=== PATIENT | female | born 1970 | race Caucasian/White ===

== ENCOUNTER 2018-03-15 20:21 | Inpatient (IN) | payer OTHER ==
[~2018-03-15] VITALS: Ht 160 cm; Wt 74.8 kg
--- NOTE | 2018-03-15 20:44 | ED GI/GU/ABDOMINAL COMPLAINT ---
History of Present Illness General Chief Complaint: Abdominal Pain/Flank Pain Stated Complaint: "ABD PAIN, CHILLS, SWEATING,GAS, NAUSEA" Source: patient, family Exam Limitations: no limitations Vital Signs & Intake/Output Vital Signs & Intake/Output Vital Signs Date Time Temp Pulse Resp B/P B/P Pulse O2 O2 Flow FiO2 Mean Ox Delivery Rate 03/18 0613 98.2 48 20 92/62 96 03/17 2205 98.2 53 18 98/52 98 Room Air 03/17 1500 97.6 58 18 100/72 97 Room Air ED Intake and Output 03/18 0000 03/17 1200 Intake Total 1730 120 Output Total 400 Balance 1330 120 Intake, IV 1000 Intake, Oral 730 120 Number 0 Bowel Movements Output, Urine 400 Allergies Coded Allergies: No Known Allergies (03/15/18) Reconcile Medications Cholecalciferol (Vitamin D3) (Vitamin D3) (Unknown Strength) CAPSULE (Unknown Dose) PO Q3D SUPPLEMENT (Reported) Ferrous Sulfate 324 MG (65 MG IRON) TABLET.DR 1 TAB PO Q3D SUPPLEMENT ( Reported) Triage Nurses Notes Reviewed? yes ? N Is pt currently ? No HPI: 48F no PMH with 1 day of acute onset of severe RUQ pain, squeezing in nature, radiates to epigastrium, with nausea and chills. Denies fever, vomiting, chest pain, SOB, diarrhea, dysuria. Had a similar episode 5 days ago that lasted about 24 hours. Strong family history of gall bladder problems. No personal or family cardiac history, non-smoker, active. No recent fatty meals. No trauma. Past History Travel History Traveled to [place] past 21 day No Medical History Any Pertinent Medical History? see below for history Surgical History Surgical History: non-contributory Psychosocial History What is your primary language Taiwanese Family History Hx Contributory? No Review of Systems Review of Systems Constitutional: Reports: no symptoms. EENTM: Reports: no symptoms. Respiratory: Reports: no symptoms. Cardiovascular: Reports: no symptoms. GI: Reports: no symptoms. Genitourinary: Reports: no symptoms. Musculoskeletal: Reports: no symptoms. Skin: Reports: no symptoms. Neurological/Psychological: Reports: no symptoms. Hematologic/Endocrine: Reports: no symptoms. Immunologic/Allergic: Reports: no symptoms. All Other Systems: Reviewed and Negative Physical Exam Physical Exam General Appearance: well developed/nourished, moderate distress Head: atraumatic, normal appearance Eyes: Bilateral: normal appearance, normal inspection. Ears, Nose, Throat, Mouth: hearing grossly normal, moist mucous membrane Neck: normal inspection, supple, full range of motion Respiratory: normal breath sounds, chest non-tender, no respiratory distress Cardiovascular: regular rate/rhythm Gastrointestinal: soft, RUQ tenderness, +Arriaza's Back: normal inspection, normal range of motion Extremities: normal range of motion Neurologic/Psych: awake, alert, oriented x 3, normal mood/affect Skin: intact, normal color, warm/dry Core Measures ACS in differential dx? No Sepsis Present: No Sepsis Focused Exam Completed? No Progress Differential Diagnosis: AAA, AMI, appendicitis, biliary colic, bowel obstruction , colon cancer, cholecystitis, diverticulitis, ectopic , endometritis, esophageal varices, gastritis, hepatitis, hernia, hemorrhoids, ischemic bowel, inflamm bowel dis, intrauterine , kidney stone, Pricilla-Shannon tear, ovarian cyst, ovarian torsion, pancreatitis, PID/cervicitis, peptic ulcer, PUD/ GERD, perforated viscous, SBO, threatened AB, UTI/pyelo Plan of Care: Orders Procedure Date/time Status EKG 03/18 0931 Active URINE 03/18 0927 Active Change service to 03/18 0747 Active HUMAN BETA HCG SCREEN 03/18 0740 Complete PROTHROMBIN TIME 03/18 0600 Complete HEPATIC FUNCTION PANEL 03/18 06 Complete CBC WITHOUT DIFFERENTIAL 03/18 06 Complete BASIC ELECTROLYTES PLUS BUN&CR 03/18 06 Complete Lab Add-on Test 03/18 UNK Active Current Medications Sig/Rachana Start time Last Medication Dose Stop Time Status Admin Dextrose/Sodium 1,000 ML Q13H 03/17 1345 AC 03/18 Chloride 0547 (D5W-1/2 Normal Saline 1000ML) Morphine Sulfate 1 MG Q4-PRN PRN 03/17 1345 AC 03/18 (MORPHINE SULFATE) 0200 Omeprazole 40 MG DAILY AC 03/17 0945 AC 03/18 (Prilosec) 0547 Metronidazole 500 MG IQ8 03/17 0000 AC 03/18 (Flagyl) 0823 N/A 1 UNIT (No Carrier) Ceftriaxone Sodium 1,000 MG DAILY@1930 03/16 193 AC 03/17 (Rocephin) 2023 Acetaminophen 1,000 MG Q8P PRN 03/16 1915 AC 03/18 (Tylenol) 0619 Ondansetron HCl 4 MG Q6P PRN 03/16 0045 AC 03/17 (Zofran) 2023 Laboratory Tests 03/18/18 0740: Anion Gap 7, Estimated GFR > 60, BUN/Creatinine Ratio 6.7 L, Total Bilirubin 2.9 H, Direct Bilirubin 1.6 H, AST 319 H, ALT 733 H, Alkaline Phosphatase 183 H, Total Protein 6.3, Albumin 3.4 L, Total Beta HCG NEGATIVE, PT 13.1 H, INR 1.20 H, CBC w Diff NO MAN DIFF REQ, RBC 3.33 L, MCV 86.8, MCH 30.5, MCHC 35.1, RDW 12.6, MPV 8.6, Gran % 54.1, Lymphocytes % 32.1, Monocytes % 10.1 H, Eosinophils % 3.1, Basophils % 0.6, Absolute Granulocytes 1.7, Absolute Lymphocytes 1.0 L, Absolute Monocytes 0.3, Absolute Eosinophils 0.1, Absolute Basophils 0 Initial ED EKG: none Departure Departure Disposition: STILL A PATIENT Condition: Stable Clinical Impression Primary Impression: Choledocholithiasis Referrals: Ivonne Smith DO (PCP/Family) Departure Forms: Customer Survey General Discharge Information Admission Note Spoke With: Josh Sadler MD Documentation of Exam: Documentation of any treatments & extenuating circumstances including Concerns Regarding Discharge (functional status, medication knowledge or non-compliance, living conditions, etc.) that warrant an admission rather than observation: RUQ PAIN AND ELEVATED LFTS WITH CBD DILITATION CONSISTENT WITH CHOLEDOCHOLITHIASIS, WILL REQUIRE ADMISSION FOR GI CONSULT, MRCP, LIKELY ERCP, WILL REQUIRE SURGERY CONSULT FOR CHOLECYSTECTOMY, MONITORING FOR PROGRESSION TO CHOLECYSTITIS.
[2018-03-15] MEDS ORDERED: FERROUS SULFAT324 MG PO (20:46)
[2018-03-15] MEDS ORDERED: VITAMIN D31000 UNI1 PO (20:47)
[2018-03-15 21:30] LABS: ABSOLUTE BASOPHIL COUNT 0 /CUMM (0.0-0.2); ABSOLUTE EOSINOPHIL COUNT 0 /CUMM (0.0-0.7); ABSOLUTE LYMPH COUNT 1.2 /CUMM (1.2-3.4); ABSOLUTE MONOCYTE COUNT 0.5 /CUMM (0.10-0.60); BASOPHIL % 0.3 % (0.0-2.0); EOSINOPHIL % 0.4 % (0-5); HEMATOCRIT 35.1 % (37-47); MEAN CORPUSCULAR HGB 29.4 PG (27.0-31.0); MEAN CORPUSCULAR HGB CONC 33.8 G/DL (33.0-37.0); MEAN CORPUSCULAR VOLUME 86.9 FL (81.0-99.0); PLATELET COUNT 210 /CUMM (130-400); RBC DISTRIBUTION WIDTH 12.7 % (11.5-14.5); RED BLOOD CELL CT 4.04 /CUMM (4.20-5.40); WHITE BLOOD CELL COUNT 6.7 /CUMM (4.8-10.8)
--- NOTE | 2018-03-15 21:32 | ULTRASOUND REPORT ---
EXAMINATION: US ABDOMEN LIMITED CLINICAL INFORMATION: Quadrant pain.. COMPARISON: None TECHNIQUE: Real-time imaging of the right upper quadrant abdominal viscera. Color Doppler exam used. FINDINGS: PANCREAS: There is a small focal echogenic area at the head of the pancreas which could be a stone in the distal duct or a pancreatic calcification. There is no pancreatic duct dilatation. There is no inflammation around the pancreas. LIVER: Normal. The liver demonstrates normal size, contour and echogenicity. No focal lesion or intrahepatic biliary duct dilatation. GALLBLADDER: Multiple small gallstones within the gallbladder. There is also echogenic bile. There is no gallbladder wall thickening. Gallbladder wall measures 0.2 cm. There is no pericholecystic fluid. Patient does have tenderness with transducer over the gallbladder area, positive ultrasound Arriaza's sign. COMMON BILE DUCT: Common bile duct is dilated to diameter 0.9 cm. There is echogenic focus at the head of the pancreas, concerning for a small stone in the distal common bile duct measuring about 4 mm. RIGHT KIDNEY: Normal. No hydronephrosis. No renal calculi or focal parenchymal lesions. The kidney measures 10.6 cm in maximum dimension. FREE FLUID: None. IMPRESSION: 1. Cholelithiasis. No gallbladder wall thickening or pericholecystic fluid. There is positive ultrasound Arriaza's sign. 2. Dilatation of the CBD to 9 mm. Possible stone in the distal CBD that of the pancreas.
--- NOTE | 2018-03-15 23:51 | History & Physical ---
Alma DeliaJazlyn jensen 03/15/18 2349: General Information and HPI MD Statement: I have seen and personally examined JERRY BREAUX and documented this H&P. The patient is a 48 year old F who presented with a patient stated chief complaint of [abdominal pain]. Source of Information: patient Exam Limitations: no limitations History of Present Illness: 48-year-old lady with no significant past medical history except anemia came to the hospital with chief complaint of nausea and abdominal pain for 1 day. She reported that couple of hours before coming to the hospital she had an episode of severe abdominal pain around her umbilical area mildly radiating to the back and associated with nausea . Per patient reported that she ate a bigger today and also had an alcoholic mixed drinks yesterday night. She reported that she had a somewhat similar episode one week ago which resolved spontaneously. She saw her PCP 3 days ago and LFTs at that point were normal and she is supposed to get the ultrasound of the abdomen later. Patient does have a family history of gallstones, denies any chest pain, headache, dizziness, shortness of breath, recent travel. Patient does report she had a muscle strain in the back sometimes the pain radiates to the back as well. No diarrhea, constipation, change in urinary habits. Patient also reports that she is having her menstrual period concurrently. Vital signs ED were stable, it should be noted that patient's blood pressure baseline is around 100-110. Labs are notable for hemoglobin 11.9, total bilirubin 1.4, direct bili 0.8, AST 725, ALT 612, ALP 175, troponin WNL, lipase 303 Abdominal ultrasound showed IMPRESSION: 1. Cholelithiasis. No gallbladder wall thickening or pericholecystic fluid. There is positive ultrasound Arriaza's sign. 2. Dilatation of the CBD to 9 mm. Possible stone in the distal CBD that of the pancreas. EKG showed bradycardia, heart rate 55, QTc 458, no acute ST-T elevation Allergies/Medications Allergies: Coded Allergies: No Known Allergies (03/15/18) Home Med list Cholecalciferol (Vitamin D3) (Vitamin D3) (Unknown Strength) CAPSULE (Unknown Dose) PO Q3D SUPPLEMENT (Reported) Ferrous Sulfate 324 MG (65 MG IRON) TABLET. 1 TAB PO Q3D SUPPLEMENT ( Reported) Past History Travel History Traveled to [place] past 21 day No Medical History Neurological: NONE EENT: NONE Cardiovascular: NONE Respiratory: NONE Gastrointestinal: NONE Surgical History Surgical History: non-contributory Past Family/Social History Family History Relations & Conditions if any FATHER (CABG). SISTER (cholecystecmtomy). Psychosocial History Smoking Status: Never Smoked ETOH Use: occasional use Review of Systems Review of Systems Constitutional: Reports: no symptoms. Exam & Diagnostic Data Last 24 Hrs of Vital Signs/I&O Vital Signs Date Time Temp Pulse Resp B/P B/P Pulse O2 O2 Flow FiO2 Mean Ox Delivery Rate 03/15 2230 62 14 100/59 99 Room Air 03/15 2210 Room Air 03/15 2046 97.6 14 106/60 100 Room Air Physical Exam General Appearance Alert, Oriented X3, Cooperative Cardiovascular Regular Rate, Normal S1, Normal S2 Lungs Clear to Auscultation, Normal Air Movement Abdomen Normal Bowel Sounds, Soft, MILD RUQ TENDERNESS, NO REBOUND Extremities No Clubbing, No Cyanosis, No Edema Assessment/Plan Assessment: 48-year-old lady with no significant past medical history except anemia came to the hospital with chief complaint of nausea and abdominal pain for 1 day. She reported that couple of hours before coming to the hospital she had an episode of severe abdominal pain around her umbilical area mildly radiating to the back and associated with nausea . Patient does have a family history of gallstones, denies any chest pain, headache, dizziness, shortness of breath, recent travel. Vital signs ED were stable, it should be noted that patient's blood pressure baseline is around 100-110. Labs are notable for hemoglobin 11.9, total bilirubin 1.4, direct bili 0.8, AST 725, ALT 612, ALP 175, troponin WNL, lipase 303 Abdominal ultrasound showed IMPRESSION: 1. Cholelithiasis. No gallbladder wall thickening or pericholecystic fluid. There is positive ultrasound Arriaza's sign. 2. Dilatation of the CBD to 9 mm. Possible stone in the distal CBD that of the pancreas. EKG showed bradycardia, heart rate 55, QTc 458, no acute ST-T elevation Assessment Choledocholithiasis with elevated LFTs History of anemia Plan Admit to general medicine floor NPO for now IV hydration with 500 cc of normal saline 75 cc/h IV morphine as needed for pain management IV Zofran as needed for nausea Trend LFTs in the morning and if it is trending up we will call GI for ERCP Patient prefers Maycol Torres MD for elective gallstone we will call in the morning Watch for fevers, hemodynamic instability and start antibiotics if patient became unstable DVT prophylaxis is mechanical, NPO, full code, IV morphine for pain As Ranked By This Provider Problem List: 1. Choledocholithiasis Core Measures/Misc (08/05) Acute Coronary Syndrome ACS Diagnosis: No Congestive Heart Failure Congestive Heart Failure Diagnosis No Cerebrovascular Accident CVA/TIA Diagnosis: No VTE (View Protocol) VTE Risk Factors Acute Medical Illness No Mechanical VTE Prophylaxis d/t N/A MechProphylax Ordered No VTE Pharm Prophylaxis d/t Other (possible gi intervention) Sepsis (View protocol) Sepsis Present: No Doroteo,Aartee 03/16/18 0053: Attending MD Review Statement Attending Statement Attending MD Statement: examined this patient, discuss w/resident/PA/VICE INVESTIGATOR, agreed w/resident/PA/VICE INVESTIGATOR, discussed with family, reviewed EMR data (avail), reviewed images, amended to note Attending Assessment/Plan: CC: Abdominal pain PMH: None Patient came to ER for severe epigastric, periumbilical pain radiating to right upper quadrant and back started this afternoon at 3 PM, after eating chicken wings, associated with nausea but no vomiting, associated with mild chills but no fever. Pain improves a little bit burping, improved after IV morphine in ER. Patient had similar symptoms approximately a week back, pain lasted for 24 hours and resolved by itself. She followed up with primary care physician on Sunday, labs were obtained at that time and she was suggested to get right upper quadrant ultrasound. Liver function appeared normal at that time and she was awaiting right upper quadrant ultrasound within next 2 weeks. But this episode of pain was getting more worse so she came to ER. Vitals: T max 98.8, pulse 62, RR 14, blood pressure 106/60, saturating 100% on room air. On exam: A O 3, cooperative, no acute distress, neck supple, JVD normal, no lymphadenopathy, mucosa moist, no focal neurological deficit, no dependent edema , no obvious skin rashes or inflammation CVS: S1-S2, RRR. RS: Clear to auscultate bilaterally. Abdomen: Soft, epigastric and right upper quadrant tenderness, Arriaza's sign negative, ND, bowel sounds present. Ultrasound abdomen: 1. Cholelithiasis. No gallbladder wall thickening or pericholecystic fluid. There is positive ultrasound Arriaza's sign. 2. Dilatation of the CBD to 9 mm. Possible stone in the distal CBD that of the pancreas. Assessment and plan 48-year-old female with no past medical history presented in ER for epigastric pain. She has tenderness to palpate in epigastrium and right upper quadrant, transaminases are significantly elevated AST 725, ALT 612, alkaline phosphatase 175, bilirubin 1.4 with direct bilirubin 0.8. She does not have any significant fever, leukocytosis or left shift. According to her, her blood pressure usually runs low. Ultrasound was obtained which shows suspicion of choledocholithiasis with dilated CBD to 9 mm. At this point patient appears to have choledocholithiasis without any evidence of ascending cholangitis. We will continue to monitor her, obtain liver function repeat in the morning, obtain GI consult, continue gentle hydration. If patient spikes fever overnight we will start antibiotics. + Suspected Choledocholithiasis - Admit to general medicine - Continue gentle hydration - Blood culture if patient spikes fever and start Unasyn or Flagyl plus ceftriaxone - Repeat liver function tests in the morning - Consult telephone exchange operator - Adequate pain control
--- NOTE | 2018-03-16 00:55 | Admission Certification ---
Admission Certification Certification Statement - As attending physician, I certify that at the time of - admission, based on clinical presentation, severity of - symptoms, need for further diagnostic testing and - therapeutic interventions, and risk of adverse outcomes - without in-hospital treatment, in my clinical assessment, - this patient requires an acute hospital stay for a minimum - of two nights or longer. I have also considered psychsocial - factors such as support system, advanced age, financial - issues, cognitive issues, and failed out-patient treatments, - past re-admission history, safety of patient, and lack of - compliance as applicable. Specific rationale supporting this admission is: Choledocholithiasis
[2018-03-16 02:01] VITALS: BP 104/64
--- NOTE | 2018-03-16 04:26 | PN- Housestaff ---
Nathaniel Flanneryelena 03/16/18 0425: Subjective Follow-up For: choledocholithiasis Subjective: I have seen and examined the patient. patient is feeling better. no pain No fevers over the night and mitral signs were stable. NPO for possible ERCP in the morning. Review of Systems Constitutional: Reports: see HPI. Objective Last 24 Hrs of Vital Signs/I&O Vital Signs Date Time Temp Pulse Resp B/P B/P Pulse O2 O2 Flow FiO2 Mean Ox Delivery Rate 03/16 0201 97.5 60 20 104/64 98 03/16 0138 98.8 69 18 100/48 96 Room Air 03/16 0023 98.8 68 18 101/51 97 Room Air 03/15 2230 62 14 100/59 99 Room Air 03/15 2210 Room Air 03/15 2046 97.6 14 106/60 100 Room Air Intake & Output 03/16 0800 03/16 0000 03/15 1600 Intake Total 1000 Output Total Balance 1000 Intake, IV 1000 Patient 74.843 kg Weight Weight Reported by Patient Measurement Method Physical Exam General Appearance: Alert, Oriented X3, Cooperative, No Acute Distress Other Physical Findings: Cardiovascular Regular Rate, Normal S1, Normal S2 Lungs Clear to Auscultation, Normal Air Movement Abdomen Normal Bowel Sounds, Soft, no tenderness Extremities No Clubbing, No Cyanosis, No Edema Current Medications: Current Medications Sig/Rachana Start time Last Medication Dose Route Stop Time Status Admin Morphine Sulfate 2 MG Q6P PRN 03/16 0045 AC IV Morphine Sulfate 0 .STK-MED ONE 03/15 2157 DC .ROUTE Morphine Sulfate 4 MG ONCE ONE 03/15 2130 DC 03/15 IV 03/15 2131 215 Ondansetron HCl 4 MG Q6P PRN 03/16 0045 AC IV Sodium Chloride 500 ML .Q6H40M 03/16 0045 AC 03/16 IV 03/16 0724 0056 Sodium Chloride 1,000 ML BOLUS ONE 03/15 2130 DC 03/15 IV 03/15 Assessment/Plan Assessment: 48-year-old lady with no significant past medical history except anemia came to the hospital with chief complaint of nausea and abdominal pain for 1 day. She reported that couple of hours before coming to the hospital she had an episode of severe abdominal pain around her umbilical area mildly radiating to the back and associated with nausea . Patient does have a family history of gallstones, denies any chest pain, headache, dizziness, shortness of breath, recent travel. Vital signs ED were stable, it should be noted that patient's blood pressure baseline is around 100-110. Labs are notable for hemoglobin 11.9, total bilirubin 1.4, direct bili 0.8, AST 725, ALT 612, ALP 175, troponin WNL, lipase 303 Abdominal ultrasound showed IMPRESSION: 1. Cholelithiasis. No gallbladder wall thickening or pericholecystic fluid. There is positive ultrasound Arriaza's sign. 2. Dilatation of the CBD to 9 mm. Possible stone in the distal CBD that of the pancreas. EKG showed bradycardia, heart rate 55, QTc 458, no acute ST-T elevation Assessment Choledocholithiasis with elevated LFTs History of anemia Plan NPO for now IV hydration with 500 cc of normal saline 75 cc/h IV morphine as needed for pain management IV Zofran as needed for nausea Labs pending for the morning watch for bleeding Trend LFTs in the morning and if it is trending up we will call GI for ERCP Patient prefers Maycol Torres MD for elective gallbladder removal, we will touch base with attending in the morning Watch for fevers, hemodynamic instability and start antibiotics if patient became unstable DVT prophylaxis is mechanical, NPO, full code, IV morphine for pain Problem List: 1. Choledocholithiasis Pain Ratin Pain Location: 0 Pain Goal: Pain 4 or less Pain Plan: same Tomorrow's Labs & Rationales: cbc bep lft Felton Anderson MD 03/16/18 0826: Attending MD Review Statement Attending Statement Attending MD Statement: examined this patient, discuss w/resident/PA/SAND CUTTER, agreed w/resident/PA/SAND CUTTER, reviewed EMR data (avail), discussed with nursing, amended to note Attending Assessment/Plan: Patient seen and examined. Resting comfortably and not in any acute distress. She reports feeling much better compared to presentation. Denies any nausea vomiting. Denies any abdominal pain currently. Reports that last use of analgesic therapy was late last night. She is afebrile and hemodynamically stable. On examination she is not jaundiced. Abdomen is nondistended, soft and nontender with normal bowel sounds. Clinically it appears that she may have passed a gallstone. Laboratory data from this morning has not been done yet. Recommendations: -Keep nothing by mouth. Change IV fluids to D5 half normal saline 5 ML an Hour. -Consult the gastroenterology service. -Follow-up a.m. labs. -Decision for ERCP will be based on GI recommendations. -Gen. surgery consultation for cholecystectomy. -Continue analgesic therapy as needed. Hold off antibiotic therapy for now however initiate for any signs of cholangitis.
[2018-03-16 06:09] VITALS: BP 100/70
[2018-03-16 06:11] VITALS: BP 144/82
[2018-03-16 10:43] LABS: ABSOLUTE BASOPHIL COUNT 0 /CUMM (0.0-0.2); ABSOLUTE EOSINOPHIL COUNT 0.1 /CUMM (0.0-0.7); ABSOLUTE GRANULOCYTE CT 2.2 /CUMM (1.4-6.5); ABSOLUTE LYMPH COUNT 1.2 /CUMM (1.2-3.4); ABSOLUTE MONOCYTE COUNT 0.3 /CUMM (0.10-0.60); BASOPHIL % 0.7 % (0.0-2.0); EOSINOPHIL % 2.3 % (0-5); GRANULOCYTE % 57.8 % (42.2-75.2); HEMATOCRIT 31.8 % (37-47); MEAN CORPUSCULAR HGB CONC 34.3 G/DL (33.0-37.0); MEAN CORPUSCULAR VOLUME 87.5 FL (81.0-99.0); MEAN PLATELET VOLUME 8.6 FL (7.4-10.4); PLATELET COUNT 181 /CUMM (130-400); RBC DISTRIBUTION WIDTH 12.6 % (11.5-14.5); RED BLOOD CELL CT 3.63 /CUMM (4.20-5.40); WHITE BLOOD CELL COUNT 3.8 /CUMM (4.8-10.8)
--- NOTE | 2018-03-16 13:50 | Cons- Gastroenterology ---
General Information and HPI Consulting Request Date of Consult: 03/16/18 Requested By: Josh Sadler MD Reason for Consult: 1. Abnormal transaminases 2. Abdominal pain 3. Cholelithiasis 4. Rule out choledocholithiasis Source of Information: patient, Electronic Medical Record Exam Limitations: no limitations History of Present Illness: Ms. Hassan is a 48-year-old white female was in her usual state of health until the night prior to admission when one hour after eating chicken wings she developed periumbilical pain which radiated to the right upper quadrant. There is no radiation to the back. She had a little nausea but no vomiting or diarrhea. She said that the pain lasted a couple hours and then gradually lightened. She is currently comfortable without any pain. She said that she had the same pain last Sunday and had gone to see her primary care physician who is scheduled an ultrasound for her which was to be done next week. She said that the pain was colicky and adverse maximum a level VIII where 10 was a worse pain possible. On admission to the ED she had an ultrasound of the right upper quadrant the results of which are as follows: FINDINGS: PANCREAS: There is a small focal echogenic area at the head of the pancreas which could be a stone in the distal duct or a pancreatic calcification. There is no pancreatic duct dilatation. There is no inflammation around the pancreas. LIVER: Normal. The liver demonstrates normal size, contour and echogenicity. No focal lesion or intrahepatic biliary duct dilatation. GALLBLADDER: Multiple small gallstones within the gallbladder. There is also echogenic bile. There is no gallbladder wall thickening. Gallbladder wall measures 0.2 cm. There is no pericholecystic fluid. Patient does have tenderness with transducer over the gallbladder area, positive ultrasound Arriaza's sign. COMMON BILE DUCT: Common bile duct is dilated to diameter 0.9 cm. There is echogenic focus at the head of the pancreas, concerning for a small stone in the distal common bile duct measuring about 4 mm. RIGHT KIDNEY: Normal. No hydronephrosis. No renal calculi or focal parenchymal lesions. The kidney measures 10.6 cm in maximum dimension. FREE FLUID: None. IMPRESSION: 1. Cholelithiasis. No gallbladder wall thickening or pericholecystic fluid. There is positive ultrasound Arriaza's sign. 2. Dilatation of the CBD to 9 mm. Possible stone in the distal CBD that of the pancreas. On admission AST/ALT was 825/612 which increased to 711/848, alk phos was 175 which decreased to 157 and totl bili was 1.4 with a direct bili of 0.8 which increased to 1.8 with a direct bili of 0.7. She denies history of IVDU or intranasal cocaine. She has had no unusual travel. No one else at home is sick. Allergies/Medications Allergies: Coded Allergies: No Known Allergies (03/15/18) Home Med List: Cholecalciferol (Vitamin D3) (Vitamin D3) (Unknown Strength) CAPSULE (Unknown Dose) PO Q3D SUPPLEMENT (Reported) Ferrous Sulfate 324 MG (65 MG IRON) TABLET.DR 1 TAB PO Q3D SUPPLEMENT ( Reported) Current Medications: Current Medications Sig/Rachana Start time Last Medication Dose Route Stop Time Status Admin Dextrose/Sodium 1,000 ML Q13H 03/16 0945 AC 03/16 Chloride IV 03/17 1144 1015 Morphine Sulfate 2 MG Q6P PRN 03/16 0045 AC IV Morphine Sulfate 0 .STK-MED ONE 03/15 2157 DC .ROUTE Morphine Sulfate 4 MG ONCE ONE 03/15 2130 DC 03/15 IV 03/15 2131 2158 Ondansetron HCl 4 MG Q6P PRN 03/16 0045 AC IV Sodium Chloride 500 ML .Q6H40M 03/16 0045 DC 03/16 IV 03/16 0724 0056 Sodium Chloride 1,000 ML BOLUS ONE 03/15 2130 DC 03/15 IV 03/15 2329 2158 Past History Travel History Traveled to [place] past 21 day No Medical History Blood Transfusion Hx: No Neurological: NONE EENT: NONE Cardiovascular: NONE Respiratory: NONE Gastrointestinal: NONE Hepatic: NONE Renal: NONE Musculoskeletal: NONE Psychiatric: NONE Endocrine: NONE Blood Disorders: NONE Cancer(s): NONE 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 SISTER (cholecystecmtomy). Psychosocial History Where Do You Live? Home Services at Home: None Smoking Status: Never Smoked ETOH Use: occasional use Exam & Diagnostic Data Vital Signs and I&O Vital Signs Date Time Temp Pulse Resp B/P B/P Pulse O2 O2 Flow FiO2 Mean Ox Delivery Rate 03/16 0611 98.9 89 20 144/82 92 03/16 0609 98.1 62 20 100/70 96 03/16 0201 97.5 60 20 104/64 98 03/16 0138 98.8 69 18 100/48 96 Room Air 03/16 0023 98.8 68 18 101/51 97 Room Air 03/15 2230 62 14 100/59 99 Room Air 03/15 2210 Room Air 03/15 2046 97.6 14 106/60 100 Room Air Intake & Output 03/16 040 Intake Total 1000 Output Total Balance 1000 Intake, IV 1000 Patient 165 lb Weight Weight Reported by Patient Measurement Method Physical Exam General Appearance: well developed/nourished, no apparent distress, alert, awake Head: atraumatic, normal appearance Eyes: Bilateral: normal appearance. Ears, Nose, Throat: normal pharynx, hearing grossly normal Neck: normal inspection, supple Respiratory: normal breath sounds, chest non-tender Cardiovascular: regular rate/rhythm, S1 and S2 without rub murmur or gallop Gastrointestinal: normal bowel sounds, soft, non-tender, no organomegaly, there was mild diffuse tenderness in the right upper quadrant and epigastrium. There was no rebound or guarding. Extremities: normal inspection, no edema Neurologic/Psych: oriented x 3, normal mood/affect Skin: intact, normal color Results Pertinent Lab Results: Laboratory Tests 03/16 03/15 0830 2120 Chemistry Sodium (137 - 145 mmol/L) 140 139 Potassium (3.5 - 5.1 mmol/L) 3.7 3.6 Chloride (98 - 107 mmol/L) 106 100 Carbon Dioxide (22 - 30 mmol/L) 26 28 Anion Gap (5 - 16) 9 11 BUN (7 - 17 mg/dL) 9 15 Creatinine (0.5 - 1.0 mg/dL) 0.6 0.7 Estimated GFR (>60 ml/min) > 60 > 60 BUN/Creatinine Ratio (7 - 25 %) 15.0 21.4 Glucose (65 - 99 mg/dL) 113 H Calcium (8.4 - 10.2 mg/dL) 8.8 Total Bilirubin (0.2 - 1.3 mg/dL) 1.8 H 1.4 H Direct Bilirubin (< 0.4 mg/dL) 0.7 H 0.8 H AST (14 - 36 U/L) 711 H 725 H ALT (9 - 52 U/L) 868 H 612 H Alkaline Phosphatase (<127 U/L) 157 H 175 H Troponin I (< 0.11 ng/ml) < 0.01 [id number] Pept (<125 pg/mL) 205 H Total Protein (6.3 - 8.2 g/dL) 6.4 7.3 Albumin (3.5 - 5.0 g/dL) 3.4 L 4.2 Amylase (30 - 110 U/L) 38 Lipase (23 - 300 U/L) 303 H Hematology CBC w Diff NO MAN DIFF REQ NO MAN DIFF REQ WBC (4.8 - 10.8 /CUMM) 3.8 L 6.7 RBC (4.20 - 5.40 /CUMM) 3.63 L 4.04 L Hgb (12.0 - 16.0 G/DL) 10.9 L 11.9 L Hct (37 - 47 %) 31.8 L 35.1 L MCV (81.0 - 99.0 FL) 87.5 86.9 MCH (27.0 - 31.0 PG) 30.0 29.4 MCHC (33.0 - 37.0 G/DL) 34.3 33.8 RDW (11.5 - 14.5 %) 12.6 12.7 Plt Count (130 - 400 /CUMM) 181 210 MPV (7.4 - 10.4 FL) 8.6 8.0 Gran % (42.2 - 75.2 %) 57.8 74.0 Lymphocytes % (20.5 - 51.1 %) 30.4 17.8 L Monocytes % (1.7 - 9.3 %) 8.8 7.5 Eosinophils % (0 - 5 %) 2.3 0.4 Basophils % (0.0 - 2.0 %) 0.7 0.3 Absolute Granulocytes (1.4 - 6.5 /CUMM) 2.2 5.0 Absolute Lymphocytes (1.2 - 3.4 /CUMM) 1.2 1.2 Absolute Monocytes (0.10 - 0.60 /CUMM) 0.3 0.5 Absolute Eosinophils (0.0 - 0.7 /CUMM) 0.1 0 Absolute Basophils (0.0 - 0.2 /CUMM) 0 0 Assessment/Plan Assessment/Recommendations: ASSESSMENT: 1. Cholelithiasis 2. Possible choledocholithiasis 3. Abnormal transaminases 4. Abnormal ultrasound of the right upper quadrant 5. Periumbilical and right upper quadrant pain 6. Elevated alkaline phosphatase I have discussed with Mrs. Hassan and her sister that her presentation is consistent with biliary colic due to choledocholithiasis. However I have explained to her that it is not clear that she has Denisse Iraheta cholelithiasis, or a stone retained either in the common bile duct or ampulla. I have drawn a picture for her describing the pancreatic and hepatobiliary ductal anatomy. I' ve also explained how and why ERCP is performed. We have discussed that her liver associated enzymes certainly are consistent with a retained stone but there are certain abnormalities that argue against a retained stone such as her bilirubin which is mostly indirect and not sufficiently elevated especially in light of the marked elevation of her transaminases. It is certainly possible that she passed the stone several days prior to admission or even last week and that the residual elevation in transaminases is related to edema at the pancreatic head. I have recommended that she get an MRI/MRCP to further delineate whether or not a stone is present. She is not eager to have this done given concerns regarding radiation exposure. I have told her that we will obtain a surgical consultation but it is likely that they will asked that an MRI be done. I've also explained that there is less radiation exposure with MRI them with ERCP. She's had an opportunity to ask questions and have them answered. RECOMMENDATIONS; 1. MRI rash MRCP today to rule out choledocholithiasis. I've discussed this with the medical house staff. 2. Surgical consultation for possible cholecystectomy 3. Repeat transaminases, alkaline phosphatase and total indirect bilirubin as well as lipase later today and tomorrow morning 4. Would keep nothing by mouth until seen by surgery 5. Would obtain PT/INR 6. Would follow CBC with differential Consult Acknowledgment - Thank you for your consult request.
--- NOTE | 2018-03-16 14:35 | Cons- General Surgery ---
General Information and HPI Consulting Request Date of Consult: 03/16/18 Requested By: Josh Sadler MD History of Present Illness: CC: abdominal pain HPI: 48-year-old nonsmoker otherwise healthy on iron for anemia, came to the ER because of abdominal pain workup showed gallstones and elevated liver function tests and surgical consult was called. This morning she feels a little better no significant pain when she had it was more periumbilical didn't radiate and wasn't right subcostal in particular she had a similar episode about a week ago which resolved, not worse with activity no relation to foods (ie. fried or cheese) relieved by time associated with n/v diarrhea no fevers no particular darkening of urine (ie iced tea) or lightening / loose stools (dumas), no FHx of gallbladder problems. Otherwise no changes bowel habits, weight or appetite. I' ve reviewed the [facility]. No history of GERD, PUD, bleeding problems, heart disease, no prior surgeries Family history diabetes COPD heart disease colitis. to be completed Obvious stone(s) in duct, correates clinically, watch for cholangitis, surgery usualy after duct is cleared Allergies/Medications Allergies: Coded Allergies: No Known Allergies (03/15/18) Home Med List: Cholecalciferol (Vitamin D3) (Vitamin D3) (Unknown Strength) CAPSULE (Unknown Dose) PO Q3D SUPPLEMENT (Reported) Ferrous Sulfate 324 MG (65 MG IRON) TABLET.DR 1 TAB PO Q3D SUPPLEMENT ( Reported) Past History Medical History Blood Transfusion Hx: No Neurological: NONE EENT: NONE Cardiovascular: NONE Respiratory: NONE Gastrointestinal: NONE Hepatic: NONE Renal: NONE Musculoskeletal: NONE Psychiatric: NONE Endocrine: NONE Blood Disorders: NONE Cancer(s): NONE 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 SISTER (cholecystecmtomy). Psychosocial History Where Do You Live? Home Services at Home: None Smoking Status: Never Smoked ETOH Use: occasional use Review of Systems Review of Systems: Constitutional: No fever, sweats or weight loss ENMT: No sore throat Cardiovascular: No chest pain, palpitations or leg swelling Respiratory: No shortness of breath, cough, or sputum or dyspnea on exertion GI: No GERD or bleeding per rectum : No dysuria or hematuria Musculoskeletal: No new muscle weakness, bone or joint pain Skin / Breast: No jaundice, rashes or itching Psychiatric: No history of drug or alcohol abuse no depression or anxiety Hematologic / lymphatic system: No problems with excessive bleeding, bruising, or blood clots Exam & Diagnostic Data Vital Signs and I&O I reviewed Vital Signs Date Time Temp Pulse Resp B/P B/P Pulse O2 O2 Flow FiO2 Mean Ox Delivery Rate 03/16 0611 98.9 89 20 144/82 92 03/16 0609 98.1 62 20 100/70 96 03/16 0201 97.5 60 20 104/64 98 03/16 0138 98.8 69 18 100/48 96 Room Air 03/16 0023 98.8 68 18 101/51 97 Room Air 03/15 2230 62 14 100/59 99 Room Air 03/15 2210 Room Air 03/15 2046 97.6 14 106/60 100 Room Air I reviewed Intake & Output 03/16 1600 03/16 0800 03/16 0000 03/15 1600 03/15 0800 03/15 0000 Intake Total 300 1000 Output Total Balance 300 1000 Intake, IV 300 1000 Patient 165 lb Weight Weight Reported by Patient Measurement Method Physical Exam: Constitutional: pleasant, no acute distress, conversant Eyes: sclera anicteric ENMT: ears and nose atraumatic, moist mucous membranes, good dentition, no lip lesions Neck: Supple, trachea is midline, no cervical or supraclavicular adenopathy and no palpable thyromegaly Cardiovascular: S1, S2, no murmurs, no peripheral edema Respiratory: clear to auscultation with normal respiratory effort and no intercostal retractions GI: abdomen soft, nontender, nondistended, no palpable hepatosplenomegaly Extremities / lymphatics: symmetrically warm, free range of motion no peripheral edema, no cervical, supraclavicular, axillary, or inguinal adenopathy Musculoskeletal: Did not evaluate gait and station, no digital cyanosis, good muscle strength and tone no atrophy, motor grossly 5 out of 5 throughout Skin: no jaundice, no rashes warm, nondiaphoretic, no areas of erythema or induration Psychiatric: mood and affect are appropriate and alert and oriented to person place and time Last 24 Hours of Labs: I reviewed Laboratory Tests 03/16 03/15 0830 0 Chemistry Sodium (137 - 145 mmol/L) 140 139 Potassium (3.5 - 5.1 mmol/L) 3.7 3.6 Chloride (98 - 107 mmol/L) 106 100 Carbon Dioxide (22 - 30 mmol/L) 26 28 Anion Gap (5 - 16) 9 11 BUN (7 - 17 mg/dL) 9 15 Creatinine (0.5 - 1.0 mg/dL) 0.6 0.7 Estimated GFR (>60 ml/min) > 60 > 60 BUN/Creatinine Ratio (7 - 25 %) 15.0 21.4 Glucose (65 - 99 mg/dL) 113 H Calcium (8.4 - 10.2 mg/dL) 8.8 Total Bilirubin (0.2 - 1.3 mg/dL) 1.8 H 1.4 H Direct Bilirubin (< 0.4 mg/dL) 0.7 H 0.8 H AST (14 - 36 U/L) 711 H 725 H ALT (9 - 52 U/L) 868 H 612 H Alkaline Phosphatase (<127 U/L) 157 H 175 H Troponin I (< 0.11 ng/ml) < 0.01 [id number] Pept (<125 pg/mL) 205 H Total Protein (6.3 - 8.2 g/dL) 6.4 7.3 Albumin (3.5 - 5.0 g/dL) 3.4 L 4.2 Amylase (30 - 110 U/L) 38 Lipase (23 - 300 U/L) 303 H Hematology CBC w Diff NO MAN DIFF REQ NO MAN DIFF REQ WBC (4.8 - 10.8 /CUMM) 3.8 L 6.7 RBC (4.20 - 5.40 /CUMM) 3.63 L 4.04 L Hgb (12.0 - 16.0 G/DL) 10.9 L 11.9 L Hct (37 - 47 %) 31.8 L 35.1 L MCV (81.0 - 99.0 FL) 87.5 86.9 MCH (27.0 - 31.0 PG) 30.0 29.4 MCHC (33.0 - 37.0 G/DL) 34.3 33.8 RDW (11.5 - 14.5 %) 12.6 12.7 Plt Count (130 - 400 /CUMM) 181 210 MPV (7.4 - 10.4 FL) 8.6 8.0 Gran % (42.2 - 75.2 %) 57.8 74.0 Lymphocytes % (20.5 - 51.1 %) 30.4 17.8 L Monocytes % (1.7 - 9.3 %) 8.8 7.5 Eosinophils % (0 - 5 %) 2.3 0.4 Basophils % (0.0 - 2.0 %) 0.7 0.3 Absolute Granulocytes (1.4 - 6.5 /CUMM) 2.2 5.0 Absolute Lymphocytes (1.2 - 3.4 /CUMM) 1.2 1.2 Absolute Monocytes (0.10 - 0.60 /CUMM) 0.3 0.5 Absolute Eosinophils (0.0 - 0.7 /CUMM) 0.1 0 Absolute Basophils (0.0 - 0.2 /CUMM) 0 0 Assessment/Plan Assessment/Plan Impression is choledocholithiasis. LFTs are trending up. I reviewed the recent MRI on PACS myself there are obvious stones in the gallbladder and also in the common duct, the ultrasound done when she came in also noted possibly choledocholithiasis overall neither study shows inflammatory changes at the gallbladder itself, though there was a sonographic Arriaza sign then. Obvious stone(s) in duct, correates clinically, watch for cholangitis, surgery usually after duct is cleared The fact that her pain is gone suggest passage of stone but the concurrent MRI shows stones are still there so it's not a complete obstruction need to continue to trend the labs. Problem List: 1. Choledocholithiasis Consult Acknowledgment - Thank you for your consult request.
--- NOTE | 2018-03-16 14:40 | MRI REPORT ---
EXAMINATION: MR ABDOMEN WITHOUT CONTRAST CLINICAL INFORMATION: Abdominal pain and cholelithiasis. Mildly dilated common bile duct on ultrasound examination. Evaluate for choledocholithiasis. COMPARISON: Abdomen ultrasound from 03/15/2018. TECHNIQUE: Imaging of the abdomen was performed using standard magnetic resonance cholangiopancreatography sequences on the high-field 1.5 Deidra magnet. FINDINGS: Lung bases are unremarkable. Liver has normal size, contour and parenchymal signal intensity. No evidence of hepatic mass or steatosis. No intrahepatic bile duct dilatation. Gallbladder is physiologically distended and is filled with multiple calculi. No evidence of gallbladder wall edema. There are multiple calculi filling the cystic duct. Also, there appear to be two adjacent, 0.6 cm calculi within the common duct near its junction with the cystic duct (image 32 of 80, series 9). The proximal common duct measures up to 10 mm, whereas the common duct distal to the calculi is 4-5 mm diameter. Pancreas is unremarkable; no pancreatic ductal dilatation or peripancreatic edema. Spleen is normal. There is are two small, subcentimeter sized cortical cysts of the upper pole of the left kidney. Otherwise, the kidneys and adrenal glands are unremarkable. No hydronephrosis. Abdominal aorta is normal in caliber. No periportal, mesenteric or retroperitoneal lymphadenopathy. The visualized loops of bowel are normal in size. No ascites. The examined abdominal wall is normal. The visualized bones have normal marrow signal intensity. The lower thoracic and lumbar vertebra have normal height and alignment. IMPRESSION: Cholelithiasis and choledocholithiasis; the dilated proximal common duct measures up to 1 cm diameter. No gallbladder wall edema is identified. No convincing findings for acute cholecystitis.
[2018-03-16 14:57] VITALS: BP 110/58
[2018-03-16 21:35] VITALS: BP 125/71
[2018-03-17 06:10] VITALS: BP 120/82
[2018-03-17 08:43] LABS: ABSOLUTE BASOPHIL COUNT 0 /CUMM (0.0-0.2); ABSOLUTE EOSINOPHIL COUNT 0.1 /CUMM (0.0-0.7); ABSOLUTE GRANULOCYTE CT 2.2 /CUMM (1.4-6.5); ABSOLUTE LYMPH COUNT 0.9 /CUMM (1.2-3.4); ABSOLUTE MONOCYTE COUNT 0.3 /CUMM (0.10-0.60); BASOPHIL % 0.9 % (0.0-2.0); EOSINOPHIL % 2.3 % (0-5); GRANULOCYTE % 63.3 % (42.2-75.2); HEMATOCRIT 32.2 % (37-47); MEAN CORPUSCULAR HGB 30.1 PG (27.0-31.0); MEAN CORPUSCULAR HGB CONC 34.4 G/DL (33.0-37.0); MEAN CORPUSCULAR VOLUME 87.6 FL (81.0-99.0); MEAN PLATELET VOLUME 8.6 FL (7.4-10.4); PLATELET COUNT 187 /CUMM (130-400); RBC DISTRIBUTION WIDTH 12.7 % (11.5-14.5); RED BLOOD CELL CT 3.68 /CUMM (4.20-5.40); WHITE BLOOD CELL COUNT 3.6 /CUMM (4.8-10.8)
--- NOTE | 2018-03-17 09:22 | PN- Housestaff ---
Lavonne Landers MD,[facility] 03/17/18 0922: Subjective Follow-up For: Choledocholithiasis Subjective: Patient visited today, was lying in bed comfortably in no acute distress, was alert and oriented. No fever or chills, no shortness of breathing, no chest pain, no other events. Patient was requesting to eat, contacted GI and disscussed the lab findings, ERCP tomorrow diet low fat for today. On Antibiotics for prophylaxis before ERCP Review of Systems Constitutional: Reports: see HPI. Objective Last 24 Hrs of Vital Signs/I&O Vital Signs Date Time Temp Pulse Resp B/P B/P Pulse O2 O2 Flow FiO2 Mean Ox Delivery Rate 03/17 0610 98.2 56 20 120/82 97 03/16 2135 98.1 67 18 125/71 99 Room Air 03/16 1457 98.1 55 20 110/58 97 Room Air Intake & Output 03/17 1600 03/17 0800 03/17 0000 Intake Total 120 540 Output Total Balance 120 540 Intake, IV 300 Intake, Oral 120 240 Number 0 Bowel Movements Physical Exam General Appearance: Alert, Oriented X3, Cooperative, No Acute Distress Skin: No Significant Lesion Skin Temp/Moisture Exam: Warm/Dry HEENT: Atraumatic, EOMI Cardiovascular: Normal S1, Normal S2 Lungs: Clear to Auscultation, Normal Air Movement Abdomen: Soft, tenderness in deep palpitation Neurological: Normal Speech Extremities: No Edema Current Medications: Current Medications Sig/Rachana Start time Last Medication Dose Route Stop Time Status Admin Acetaminophen 1,000 MG Q8P PRN 03/16 1915 AC 03/16 PO 1928 Ceftriaxone Sodium 1,000 MG DAILY@1930 03/16 1930 AC 03/16 IV 2155 Dextrose/Sodium 1,000 ML Q13H 03/17 1345 UNVr Chloride IV Dextrose/Sodium 1,000 ML Q13H 03/16 0945 [place] 03/16 Chloride IV 03/17 1144 1015 Metronidazole 500 MG IQ8 03/17 0000 AC 03/17 N/A 1 UNIT IV 0806 Morphine Sulfate 1 MG Q4-PRN PRN 03/17 1345 UNVr IV Morphine Sulfate 1 MG Q8P PRN 03/17 1245 DC 03/17 IV 1248 Morphine Sulfate 2 MG ONCE ONE 03/17 0945 DC 03/17 IV 03/17 0946 0958 Morphine Sulfate 2 MG ONCE ONE 03/16 2045 DC 03/16 IV 03/16 Morphine Sulfate 2 MG Q6P PRN 03/165 DC IV Omeprazole 40 MG DAILY AC 03/17 0945 AC 03/17 PO 0958 Ondansetron HCl 4 MG Q6P PRN 03/16 45 AC 03/17 IV 1211 Sodium Chloride 1,000 ML Q13H 03/17 1245 DC 03/17 IV 1248 Last 24 Hrs of Lab/Jaime Results Last 24 Hrs of Labs/Mics: Laboratory Tests 03/17/18 0715: Total Bilirubin 2.0 H, Direct Bilirubin 1.0 H, AST 595 H, ALT 849 H, Alkaline Phosphatase 205 H, Total Protein 6.6, Albumin 3.5, CBC w Diff NO MAN DIFF REQ, RBC 3.68 L, MCV 87.6, MCH 30.1, MCHC 34.4, RDW 12.7, MPV 8.6, Gran % 63.3, Lymphocytes % 26.0, Monocytes % 7.5, Eosinophils % 2.3, Basophils % 0.9, Absolute Granulocytes 2.2, Absolute Lymphocytes 0.9 L, Absolute Monocytes 0.3, Absolute Eosinophils 0.1, Absolute Basophils 0 03/16/181937: Anion Gap 9, Estimated GFR > 60, BUN/Creatinine Ratio 15.0, Total Bilirubin 1.4 H, Direct Bilirubin 0.4, AST 477 H, ALT 740 H, Alkaline Phosphatase 145 H, Total Protein 6.6, Albumin 3.6, PT 13.0 H, INR 1.19 Microbiology 03/16 2038 BLOOD: Blood Culture - RES 03/16 1931 BLOOD: Blood Culture - RES Assessment/Plan Assessment: 48-year-old lady with no significant past medical history except anemia came to the hospital with chief complaint of nausea and abdominal pain for 1 day. She reported that couple of hours before coming to the hospital she had an episode of severe abdominal pain around her umbilical area mildly radiating to the back and associated with nausea . Patient does have a family history of gallstones, denies any chest pain, headache, dizziness, shortness of breath, recent travel. Vital signs ED were stable, it should be noted that patient's blood pressure baseline is around 100-110. Labs are notable for hemoglobin 11.9, total bilirubin 1.4, direct bili 0.8, AST 725, ALT 612, ALP 175, troponin WNL, lipase 303 Abdominal ultrasound showed IMPRESSION: 1. Cholelithiasis. No gallbladder wall thickening or pericholecystic fluid. There is positive ultrasound Arriaza's sign. 2. Dilatation of the CBD to 9 mm. Possible stone in the distal CBD that of the pancreas. EKG showed bradycardia, heart rate 55, QTc 458, no acute ST-T elevation Assessment Choledocholithiasis with elevated LFTs History of anemia Plan Continue GM admission Low fat diet per GI IV hydration 75 halfsalin and D5w as tolerated IV morphine q4 PRN IV Zofran as needed for nausea Trend LFTs Tomorrow ERCP, NPO midnight Elective cholecystectomy, MD Melissa on board ceftriaxone and metro for cholangitis prophylaxis Watch for fevers, hemodynamic instability DVT prophylaxis is mechanical Problem List: 1. 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 present at bedside. Complained of increased abdominal pain today. She had done well yesterday. Denies nausea vomiting. Tolerating clear liquid diet. On examination abdomen is soft with mild right upper quadrant tenderness. No rebound or guarding. Bowel sounds normal. MRCP done yesterday as recommended by the GI service shows evidence of cholelithiasis and choledocholithiasis. She was also evaluated by the general surgery service. Laboratory data today shows slight upward trend over LFTs today. Recommendations: -Pain control with morphine 1 mg IV every 4 hours as needed pain. -Hydrate with half-normal saline at 100 cc an hour. N.p.o. past midnight. -ERCP tomorrow morning. Timing of cholecystectomy to be determined after the procedure.
--- NOTE | 2018-03-17 13:15 | PN- General Surgery ---
Subjective Subjective: Follow-up of choledocholithiasis She says her abdominal discomfort is back not as severe no nausea tolerating some clear liquids no fevers or sweats. Objective Vital Signs and I&Os I reviewed Vital Signs Date Time Temp Pulse Resp B/P B/P Pulse O2 O2 Flow FiO2 Mean Ox Delivery Rate 03/17 0610 98.2 56 20 120/82 97 03/16 2135 98.1 67 18 125/71 99 Room Air 03/16 1457 98.1 55 20 110/58 97 Room Air I reviewed Intake & Output 03/17 1600 03/17 0000 03/16 1600 03/16 0803/16 0000 Intake Total 120 362 018 1500 Output Total Balance 120 789 560 9166 Intake, IV 702 922 4186 Intake, Oral 120 240 Number 0 Bowel Movements Patient 165 lb Weight Weight Reported by Patient Measurement Method Physical Exam: Constitutional: no acute distress no pain Eyes: sclera anicteric ENMT: moist mucous membranes Cardiovascular: S1-S2 no murmurs no peripheral edema Respiratory: clear to auscultation with normal respiratory effort and no intercostal retractions GI: abdomen very soft mild right upper quadrant tenderness nondistended Extremities / lymphatics: free range of motion no peripheral edema Skin: no jaundice no rashes warm, nondiaphoretic Psychiatric: mood and affect are appropriate and alert and oriented to person place and time Assessment/Plan Assessment/Plan Impression is choledocholithiasis depending on GI, laparoscopic cholecystectomy to follow still monitor for signs of cholangitis as yet no fevers or worsening leukocytosis. Consider rechecking her lipase since it was slightly elevated. Regarding the eventual surgery which she feels she might defer to outpatient, we shall see, The current standard of care is removal of the gallbladder laparoscopically, preferably not emergently. Once they become symptomatic, gallstones can lead to complications such as cholecystitis, pancreatitis and cholangitis as she can see but I don't feel she has acute cholecystitis. I also explained the nature and possibility of retained stones, and rarely, persistent postoperative diarrhea. I illustrated how the stones cause problems and how the anatomy and inflammation can make the surgery more difficult, sometimes requiring an open procedure, and rarely to repair a bile duct injury leading to significant morbidity and even mortality. This in our practice is exceedingly rare, but other more common risks were also discussed such as infection, injury to other surrounding structures such as bowel and blood vessels. We also discussed the potential risks, benefits and alternatives to the procedure and surgery in general, issues that included but were not limited to, anesthetic risks hemorrhage requiring transfusion, the risk of transfusion itself, infection, heart attack, stroke, . Problem List: 1. Choledocholithiasis Attending MD Review Statement Attending Statement Attending MD Statement: examined this patient, discussed with family
[2018-03-17 15:00] VITALS: BP 100/72
--- NOTE | 2018-03-17 17:03 | PN- Gastroenterology ---
Assessment/Plan GI Assessment/Recommendations: ASSESSMENT: 1. Cholelithiasis without cholecystitis 2. Choledocholithiasis with obstruction 3. Abnormal transaminases 4. Elevated alkaline phosphatase RECOMMENDATIONS: 1. Continue antibiotics for cholangitis 2. PT/INR in a.m. 3. Nothing by mouth after midnight for ERCP tomorrow 4. Cholecystectomy after ERCP per surgery Subjective Subjective: Patient had an episode of pain requiring narcotics but is feeling more comfortable now. No nausea or vomiting or fever. Objective Vital Signs and I&Os Vital Signs Date Time Temp Pulse Resp B/P B/P Pulse O2 O2 Flow FiO2 Mean Ox Delivery Rate 03/17 0610 98.2 56 20 120/82 97 03/16 2135 98.1 67 18 125/71 99 Room Air Intake & Output 03/17 1600 03/17 0400 03/16 1600 03/16 0400 03/15 1600 03/15 0400 Intake Total 670 931 426 7922 Output Total 400 Balance 270 856 753 2501 Intake, IV 300 641 953 7177 Intake, Oral 370 240 Number 0 Bowel Movements Output, Urine 400 Patient 165 lb Weight Weight Reported by Patient Measurement Method Physical Exam General Appearance: well developed/nourished, no apparent distress, alert, awake Respiratory: no respiratory distress, lungs clear Cardiovascular: regular rate/rhythm, normal S1 and S2 without rub, murmur, or gallop Abdomen: normal bowel sounds, soft, mild right upper quadrant tenderness without rebound or guarding, no rebound or guarding. Neurologic/Psychiatric: no motor/sensory deficits, awake, alert, oriented x 3 Skin: intact, normal color, warm/dry Current Medications: Current Medications Sig/Rachana Start time Last Medication Dose Route Stop Time Status Admin Acetaminophen 1,000 MG Q8P PRN 03/16 1915 03/16 PO 1928 Ceftriaxone Sodium 1,000 MG DAILY@1930 03/16 1930 03/16 IV 2155 Dextrose/Sodium 1,000 ML Q13H 03/17 1345 AC 03/17 Chloride IV 1351 Dextrose/Sodium 1,000 ML Q13H 03/16 0945 DC 03/16 Chloride IV 03/17 1144 1015 Metronidazole 500 MG IQ8 03/17 0000 AC 03/17 N/A 1 UNIT IV 0806 Morphine Sulfate 1 MG Q4-PRN PRN 03/17 1345 AC 03/17 IV 1607 Morphine Sulfate 1 MG Q8P PRN 03/17 1245 DC 03/17 IV 1248 Morphine Sulfate 2 MG ONCE ONE 03/17 0945 DC 03/17 IV 03/17 0946 0958 Morphine Sulfate 2 MG ONCE ONE 03/16 2045 DC 03/16 IV 03/16 Morphine Sulfate 2 MG Q6P PRN 03/16 0045 DC IV Omeprazole 40 MG DAILY AC 03/17 0945 AC 03/17 PO 0958 Ondansetron HCl 4 MG Q6P PRN 03/16 0045 AC 03/17 IV 1211 Sodium Chloride 1,000 ML Q13H 03/17 1245 DC 03/17 IV 1248 Results Pertinent Lab Results: Laboratory Tests 03/17 03/16 0715 1938 Chemistry Sodium (137 - 145 mmol/L) 142 Potassium (3.5 - 5.1 mmol/L) 3.6 Chloride (98 - 107 mmol/L) 105 Carbon Dioxide (22 - 30 mmol/L) 27 Anion Gap (5 - 16) 9 BUN (7 - 17 mg/dL) 9 Creatinine (0.5 - 1.0 mg/dL) 0.6 Estimated GFR (>60 ml/min) > 60 BUN/Creatinine Ratio (7 - 25 %) 15.0 Total Bilirubin (0.2 - 1.3 mg/dL) 2.0 H 1.4 H Direct Bilirubin (< 0.4 mg/dL) 1.0 H 0.4 AST (14 - 36 U/L) 595 H 477 H ALT (9 - 52 U/L) 849 H 740 H Alkaline Phosphatase (<127 U/L) 205 H 145 H Total Protein (6.3 - 8.2 g/dL) 6.6 6.6 Albumin (3.5 - 5.0 g/dL) 3.5 3.6 Coagulation PT (9.4 - 12.5 SEC) 13.0 H INR (0.90 - 1.19) 1.19 Hematology CBC w Diff NO MAN DIFF REQ WBC (4.8 - 10.8 /CUMM) 3.6 L RBC (4.20 - 5.40 /CUMM) 3.68 L Hgb (12.0 - 16.0 G/DL) 11.1 L Hct (37 - 47 %) 32.2 L MCV (81.0 - 99.0 FL) 87.6 MCH (27.0 - 31.0 PG) 30.1 MCHC (33.0 - 37.0 G/DL) 34.4 RDW (11.5 - 14.5 %) 12.7 Plt Count (130 - 400 /CUMM) 187 MPV (7.4 - 10.4 FL) 8.6 Gran % (42.2 - 75.2 %) 63.3 Lymphocytes % (20.5 - 51.1 %) 26.0 Monocytes % (1.7 - 9.3 %) 7.5 Eosinophils % (0 - 5 %) 2.3 Basophils % (0.0 - 2.0 %) 0.9 Absolute Granulocytes (1.4 - 6.5 /CUMM) 2.2 Absolute Lymphocytes (1.2 - 3.4 /CUMM) 0.9 L Absolute Monocytes (0.10 - 0.60 /CUMM) 0.3 Absolute Eosinophils (0.0 - 0.7 /CUMM) 0.1 Absolute Basophils (0.0 - 0.2 /CUMM) 0 03/16 03/15 0830 2120 Chemistry Sodium (137 - 145 mmol/L) 140 139 Potassium (3.5 - 5.1 mmol/L) 3.7 3.6 Chloride (98 - 107 mmol/L) 106 100 Carbon Dioxide (22 - 30 mmol/L) 26 28 Anion Gap (5 - 16) 9 11 BUN (7 - 17 mg/dL) 9 15 Creatinine (0.5 - 1.0 mg/dL) 0.6 0.7 Estimated GFR (>60 ml/min) > 60 > 60 BUN/Creatinine Ratio (7 - 25 %) 15.0 21.4 Glucose (65 - 99 mg/dL) 113 H Calcium (8.4 - 10.2 mg/dL) 8.8 Total Bilirubin (0.2 - 1.3 mg/dL) 1.8 H 1.4 H Direct Bilirubin (< 0.4 mg/dL) 0.7 H 0.8 H AST (14 - 36 U/L) 711 H 725 H ALT (9 - 52 U/L) 868 H 612 H Alkaline Phosphatase (<127 U/L) 157 H 175 H Troponin I (< 0.11 ng/ml) < 0.01 Dgy-M-[id number] Pept (<125 pg/mL) 205 H Total Protein (6.3 - 8.2 g/dL) 6.4 7.3 Albumin (3.5 - 5.0 g/dL) 3.4 L 4.2 Amylase (30 - 110 U/L) 38 Lipase (23 - 300 U/L) 303 H Hematology CBC w Diff NO MAN DIFF REQ NO MAN DIFF REQ WBC (4.8 - 10.8 /CUMM) 3.8 L 6.7 RBC (4.20 - 5.40 /CUMM) 3.63 L 4.04 L Hgb (12.0 - 16.0 G/DL) 10.9 L 11.9 L Hct (37 - 47 %) 31.8 L 35.1 L MCV (81.0 - 99.0 FL) 87.5 86.9 MCH (27.0 - 31.0 PG) 30.0 29.4 MCHC (33.0 - 37.0 G/DL) 34.3 33.8 RDW (11.5 - 14.5 %) 12.6 12.7 Plt Count (130 - 400 /CUMM) 181 210 MPV (7.4 - 10.4 FL) 8.6 8.0 Gran % (42.2 - 75.2 %) 57.8 74.0 Lymphocytes % (20.5 - 51.1 %) 30.4 17.8 L Monocytes % (1.7 - 9.3 %) 8.8 7.5 Eosinophils % (0 - 5 %) 2.3 0.4 Basophils % (0.0 - 2.0 %) 0.7 0.3 Absolute Granulocytes (1.4 - 6.5 /CUMM) 2.2 5.0 Absolute Lymphocytes (1.2 - 3.4 /CUMM) 1.2 1.2 Absolute Monocytes (0.10 - 0.60 /CUMM) 0.3 0.5 Absolute Eosinophils (0.0 - 0.7 /CUMM) 0.1 0 Absolute Basophils (0.0 - 0.2 /CUMM) 0 0
[2018-03-17 22:05] VITALS: BP 98/52
[2018-03-18 06:13] VITALS: BP 92/62
--- NOTE | 2018-03-18 07:31 | PN- Housestaff ---
Marlon[place]ascus 03/18/18 0731: Subjective Follow-up For: Choledocholithiasis Cholelithiasis Subjective: Patient reported having nausea and vomiting episode of vomiting last night. Patient seen and examined this morning. She denied any chest pain, nausea, vomiting, chills, fever, abdominal pain dysuria. She is nothing by mouth and going for ERCP today. We'll follow the general surgery recommendation for cholecystectomy after ERCP. Review of Systems Constitutional: Denies: chills, fever. EENTM: Reports: no symptoms. Cardiovascular: Denies: chest pain, palpitations. Respiratory: Denies: cough, short of breath, sputum production. Gastrointestinal: Denies: abdominal pain, constipation, diarrhea, melena, nausea, vomiting. Genitourinary: Reports: no symptoms. Neurological/Psychological: Reports: no symptoms. Objective Last 24 Hrs of Vital Signs/I&O Vital Signs Date Time Temp Pulse Resp B/P B/P Pulse O2 O2 Flow FiO2 Mean Ox Delivery Rate 03/18 0613 98.2 48 20 92/62 96 03/17 2205 98.2 53 18 98/52 98 Room Air 03/17 1500 97.6 58 18 100/72 97 Room Air Intake & Output 03/18 0800 03/18 0000 03/17 1600 Intake Total 605 1180 550 Output Total 400 Balance 605 1180 150 Intake, IV 545 700 300 Intake, Oral 60 480 250 Number 0 0 Bowel Movements Output, Urine 400 Physical Exam General Appearance: Alert, Oriented X3, Cooperative Skin: No Rashes Skin Temp/Moisture Exam: Warm/Dry Sepsis Skin Exam (color): Normal for Ethnicity HEENT: Atraumatic, PERRLA, EOMI Neck: Supple Cardiovascular: Normal S1, Normal S2 Lungs: Clear to Auscultation Abdomen: Soft, No Tenderness Neurological: Normal Speech, Strength at 5/5 X4 Ext, Normal Tone Extremities: No Edema Assessment/Plan Assessment: 48-year-old lady with no significant past medical history except anemia came to the hospital with chief complaint of nausea and abdominal pain for 1 day. She reported that couple of hours before coming to the hospital she had an episode of severe abdominal pain around her umbilical area mildly radiating to the back and associated with nausea . We are following the patient on general medicine floor for further problems: Choledocholithiasis and cholelithiasis: -No evidence of cholecystitis. Dilated CBD 1 cm diameter. -Nothing by mouth for possible ERCP today. -Continue IV hydration -Continue morphine every 4 when necessary -Continue Zofran as needed for nausea -Continue omeprazole -Follow-up LFTs -Continue ceftriaxone and Flagyl, prophylactically for cholangitis. -Follow-up general surgery recommendations regarding cholecystectomy after ERCP. -Follow up GI recommendations. DVT prophylaxis: Mechanical only considering her procedure CODE STATUS: Full code Problem List: 1. Choledocholithiasis Pain Ratin Pain Location: none Pain Goal: Remain pain free Pain Plan: Pain pathway Tomorrow's Labs & Rationales: cbc/bep/LFTs Monica KIMBALLFelton 03/18/18 1304: Attending MD Review Statement Attending Statement Attending MD Statement: examined this patient, discuss w/resident/PA/FLORIST SUPPLIES SALESPERSON, agreed w/resident/PA/FLORIST SUPPLIES SALESPERSON, reviewed EMR data (avail), discussed with nursing, discussed with case mgmt, amended to note Attending Assessment/Plan: Patient seen and examined. Denies any nausea vomiting. Does admit to mild abdominal discomfort on and off. She is very eager to have her procedure carried out. She is upset about having we did this long to have a procedure done. She is scheduled to have her ERCP done later on today. Decision regarding elective cholecystectomy will be made after the ERCP. Blood pressure was on the lower side this morning. Patient remained alert and oriented 3. She did report mild lightheadedness that resolved. She is noted to be mildly bradycardic with heart rate in the high 40s. She had similar sinus bradycardia on presentation. She is not on any maria eugenia blocking agent. She denies any palpitations. Denies any history of chest pain. She did admit to epigastric discomfort earlier on today that has resolved. Recommendations: -Icrease rate of IV fluids 150cc an hour. -Repeat EKG. If bradycardia persistent recommend echocardiogram and cardiology consultation. Follow recommendations of the GI service postprocedure.-
[2018-03-18 08:15] LABS: PT 13.1 SEC (9.4-12.5)
[2018-03-18 08:20] LABS: ABSOLUTE BASOPHIL COUNT 0 /CUMM (0.0-0.2); ABSOLUTE EOSINOPHIL COUNT 0.1 /CUMM (0.0-0.7); ABSOLUTE GRANULOCYTE CT 1.7 /CUMM (1.4-6.5); ABSOLUTE MONOCYTE COUNT 0.3 /CUMM (0.10-0.60); BASOPHIL % 0.6 % (0.0-2.0); EOSINOPHIL % 3.1 % (0-5); GRANULOCYTE % 54.1 % (42.2-75.2); HEMATOCRIT 28.9 % (37-47); MEAN CORPUSCULAR HGB 30.5 PG (27.0-31.0); MEAN CORPUSCULAR HGB CONC 35.1 G/DL (33.0-37.0); MEAN CORPUSCULAR VOLUME 86.8 FL (81.0-99.0); MEAN PLATELET VOLUME 8.6 FL (7.4-10.4); PLATELET COUNT 157 /CUMM (130-400); RBC DISTRIBUTION WIDTH 12.6 % (11.5-14.5); RED BLOOD CELL CT 3.33 /CUMM (4.20-5.40); WHITE BLOOD CELL COUNT 3.2 /CUMM (4.8-10.8)
[2018-03-18 14:31] VITALS: BP 116/57
--- NOTE | 2018-03-18 17:27 | Proc Note ERCP ---
ERCP Procedure Procedure Date: 03/18/18 GI Procedure(s): ERCP with sphincterotomy/papillary balloon dilatation, and insertion of stents Water Attendant: Jh Ledesma M.D. ASA Classification: II Indications: Abdominal pain, elevated LFTs/bilirubin, choledocholithiasis Instrument: duodenoscope Meds Received: MAC Patient's Tolerance: fair (postoperative pain, bradycardi) Complications: none Procedure: The patient signed informed consent, was placed in the prone position and was medicated. Lidocaine pharyngeal spray was also administered. Pulse oximetry, blood pressure and cardiac monitoring were performed continuously throughout the procedure. The Olympus V duodenoscope was inserted into the mouth and advanced to the duodenum. Indomethacin 100 mg was administered per rectum. The stomach was not examined. The duodenum and papilla were normal. The pancreas was not cannulated/injected. The bile duct was accessed with guidewire , cannulated and opacified. The cholangiogram demonstrated a normal CBD (5 mm), dilated CHD (10 mm, and 6 filling defects in the CHD/proximal CBD, with the most distal measuring 10 mm. The intrahepatic ducts were normal. A large, bloodless sphincterotomy was performed. The most distal stone was not extractable with a balloon. As such the ampulla was dilated to 11 mm for 30 seconds, using a CRE balloon. The extraction balloon could be extracted through the ampulla fully inflated. It was reintroduced, but the most distal stone could not be advanced beyond the distal CBD (apparently decreased compliance of CBD in relation to size/shape of stone). 2 7 E[place]an/7 cm double pigtail (Zimmon) stents were inserted. Postprocedure, the patient had bradycardia corrected with atropine, as well as abdominal pain. She was moved from the GI recovery area to the PACU. Impression: * Choledocholithiasis with multiple medium/large stones * Performance of sphincterotomy/papillary balloon dilatation, and insertion of stents Recommendations: * Transferred to telemetry or ICU, given bradycardia and pain. * CT scan of the abdomen tonight * IV analgesics and antiemetics as necessary * Nothing by mouth until pain-free, and then may begin clear liquids * IV fluids (Ringers lactate) * Follow-up CBC and LFTs in the morning * Avoid anticoagulation for 72 hours possible * Eventual repeat ERCP with possible dilatation and lithotripsy CC: Solomon Smith DO, MD,Maycol Macario
--- NOTE | 2018-03-18 18:31 | Cons- Cardiology ---
General Information and HPI Consulting Request Date of Consult: 03/18/18 Requested By: Felton Anderson MD Reason for Consult: Bradycardia History of Present Illness: Patient hospitalized for common bile duct obstruction, s/p ERCP partial stone extraction, ampullectomy and stent placement. No significant PMH. Fortuitous discovery of sinus bradycardia. Difficult to assess if patient has been symptomatic from it, as she has been very ill from her choledocholithiasis. HR generally in the 50s with periods in the 40s. Ms Hassan denies chest pain, denies palpitations, denies dizziness (even during reported periods of bradycardia). No past history of syncopy, dizziness or chest pains. Allergies/Medications Allergies: Coded Allergies: No Known Allergies (03/15/18) Home Med List: Cholecalciferol (Vitamin D3) (Vitamin D3) (Unknown Strength) CAPSULE (Unknown Dose) PO Q3D SUPPLEMENT (Reported) Ferrous Sulfate 324 MG (65 MG IRON) TABLET.DR 1 TAB PO Q3D SUPPLEMENT ( Reported) Current Medications: Current Medications Sig/Rachana Start time Last Medication Dose Route Stop Time Status Admin Acetaminophen 1,000 MG Q8P PRN 03/16 1915 AC 03/18 PO 0619 Ceftriaxone Sodium 1,000 MG DAILY@1930 03/16 1930 AC 03/17 IV 2024 Dextrose/Sodium 1,000 ML Q13H 03/17 1345 AC 03/18 Chloride IV 0547 Metronidazole 500 MG IQ8 03/17 0000 AC 03/18 N/A 1 UNIT IV 0823 Morphine Sulfate 1 MG Q4-PRN PRN 03/17 1345 AC 03/18 IV 0200 Omeprazole 40 MG DAILY AC 03/17 0945 AC 03/18 PO 0547 Ondansetron HCl 4 MG .STK-MED ONE 03/17 2020 DC IM 03/17 2021 Ondansetron HCl 4 MG Q6P PRN 03/16 0045 AC 03/17 IV 2024 Patient Medication 1 ED ONE ONE 03/18 1500 DC Teaching ED 03/18 1501 Past History Travel History Traveled to [place] past 21 day No Medical History Blood Transfusion Hx: No Neurological: NONE EENT: NONE Cardiovascular: NONE Respiratory: NONE Gastrointestinal: NONE Hepatic: NONE Renal: NONE Musculoskeletal: NONE Psychiatric: NONE Endocrine: NONE Blood Disorders: NONE Cancer(s): NONE CARTOGRAPHIC AIDE/Reproductive: NONE Surgical History Surgical History: non-contributory Family History Relations & Conditions If Any: FATHER (CABG). SISTER (cholecystecmtomy). Psychosocial History Where Do You Live? Home Services at Home: None Smoking Status: Never Smoked ETOH Use: occasional use Exam & Diagnostic Data Vital Signs and I&O Vital Signs Date Time Temp Pulse Resp B/P B/P Pulse O2 O2 Flow FiO2 Mean Ox Delivery Rate 03/18 1431 97.5 50 18 116/57 95 Room Air 03/18 0613 98.2 48 20 92/62 96 03/17 2205 98.2 53 18 98/52 98 Room Air Intake & Output 03/18 1600 03/18 0800 03/18 0000 03/17 1600 03/17 0800 03/17 0000 Intake Total 4796 594 0949 550 120 540 Output Total 400 Balance 6747 053 3314 150 120 540 Intake, IV 1000 545 700 300 300 Intake, Oral 60 480 250 120 240 Number 0 0 0 0 Bowel Movements Output, Urine 400 Patient 165 lb Weight Physical Exam General Appearance: alert, awake, mild distress Head: atraumatic Neck: supple, trachea mid line (no JVD, no carotid bruit) Respiratory: normal breath sounds, no respiratory distress, lungs clear Cardiovascular: regular rate/rhythm, normal peripheral pulses (absence of murmur ) Gastrointestinal: distention, guarding Extremities: normal capillary refill Labs/Jaime Results: Laboratory Tests 03/18 03/17 0740 0715 Chemistry Sodium (137 - 145 mmol/L) 140 Potassium (3.5 - 5.1 mmol/L) 3.5 Chloride (98 - 107 mmol/L) 106 Carbon Dioxide (22 - 30 mmol/L) 26 Anion Gap (5 - 16) 7 BUN (7 - 17 mg/dL) 4 L Creatinine (0.5 - 1.0 mg/dL) 0.6 Estimated GFR (>60 ml/min) > 60 BUN/Creatinine Ratio (7 - 25 %) 6.7 L Total Bilirubin (0.2 - 1.3 mg/dL) 2.9 H 2.0 H Direct Bilirubin (< 0.4 mg/dL) 1.6 H 1.0 H AST (14 - 36 U/L) 319 H 595 H ALT (9 - 52 U/L) 733 H 849 H Alkaline Phosphatase (<127 U/L) 183 H 205 H Total Protein (6.3 - 8.2 g/dL) 6.3 6.6 Albumin (3.5 - 5.0 g/dL) 3.4 L 3.5 Total Beta HCG (NEGATIVE) NEGATIVE Coagulation PT (9.4 - 12.5 SEC) 13.1 H INR (0.90 - 1.19) 1.20 H Hematology CBC w Diff NO MAN DIFF REQ NO MAN DIFF REQ WBC (4.8 - 10.8 /CUMM) 3.2 L 3.6 L RBC (4.20 - 5.40 /CUMM) 3.33 L 3.68 L Hgb (12.0 - 16.0 G/DL) 10.1 L 11.1 L Hct (37 - 47 %) 28.9 L 32.2 L MCV (81.0 - 99.0 FL) 86.8 87.6 MCH (27.0 - 31.0 PG) 30.5 30.1 MCHC (33.0 - 37.0 G/DL) 35.1 34.4 RDW (11.5 - 14.5 %) 12.6 12.7 Plt Count (130 - 400 /CUMM) 157 187 MPV (7.4 - 10.4 FL) 8.6 8.6 Gran % (42.2 - 75.2 %) 54.1 63.3 Lymphocytes % (20.5 - 51.1 %) 32.1 26.0 Monocytes % (1.7 - 9.3 %) 10.1 H 7.5 Eosinophils % (0 - 5 %) 3.1 2.3 Basophils % (0.0 - 2.0 %) 0.6 0.9 Absolute Granulocytes (1.4 - 6.5 /CUMM) 1.7 2.2 Absolute Lymphocytes (1.2 - 3.4 /CUMM) 1.0 L 0.9 L Absolute Monocytes (0.10 - 0.60 /CUMM) 0.3 0.3 Absolute Eosinophils (0.0 - 0.7 /CUMM) 0.1 0.1 Absolute Basophils (0.0 - 0.2 /CUMM) 0 0 03/168 Chemistry Sodium (137 - 145 mmol/L) 142 Potassium (3.5 - 5.1 mmol/L) 3.6 Chloride (98 - 107 mmol/L) 105 Carbon Dioxide (22 - 30 mmol/L) 27 Anion Gap (5 - 16) 9 BUN (7 - 17 mg/dL) 9 Creatinine (0.5 - 1.0 mg/dL) 0.6 Estimated GFR (>60 ml/min) > 60 BUN/Creatinine Ratio (7 - 25 %) 15.0 Total Bilirubin (0.2 - 1.3 mg/dL) 1.4 H Direct Bilirubin (< 0.4 mg/dL) 0.4 AST (14 - 36 U/L) 477 H ALT (9 - 52 U/L) 740 H Alkaline Phosphatase (<127 U/L) 145 H Total Protein (6.3 - 8.2 g/dL) 6.6 Albumin (3.5 - 5.0 g/dL) 3.6 Coagulation PT (9.4 - 12.5 SEC) 13.0 H INR (0.90 - 1.19) 1.19 Assessment/Plan Assessment/Plan Sinus bradycardia in the setting of acute choledocolithiasis without evidence of maria eugenia block of intraventricular block. Likely secondary to vagal upregulation due to visceral distention. R/O ACS, ischemia (unlikely), with serial troponins. If symptomatic bradycardia, atropine 0.2mg IV X 2 prn. If persistant bradycardia , isuprel drip could be considered (i doubt i will be necessary). Echocardiogram could be done in the next days. I will follow patients during the next days. Consult Acknowledgment - Thank you for your consult request.
--- NOTE | 2018-03-18 18:59 | CT SCAN REPORT ---
EXAMINATION: CT ABDOMEN AND PELVIS WITHOUT CONTRAST CLINICAL INFORMATION: Status post ERCP. Pain in abdomen and the back. COMPARISON: ERCP today. MR abdomen 03/16/2018. Ultrasound of abdomen 03/15/2018. TECHNIQUE: Multidetector volumetric imaging was performed from the superior aspect of the liver through the pubic symphysis. Sagittal and coronal reformatted images were obtained on the technologist's workstation. DLP: 454.81 mGy-cm FINDINGS: LUNG BASES: Linear scarring/atelectasis at both lung bases. LIVER, GALLBLADDER, AND BILIARY TREE: There are multiple gallstones within the gallbladder as well as within the common bile duct. There is also a biliary stent in place extending from the lumen of the duodenum to the proximal CBD. There is some air in the bile ducts. There is contrast within the lumen of the stomach and the duodenum and proximal jejunum. No contrast is seen extravasated from the lumen of the bowel. There is a trace amount of fluid around the gallbladder but no abscess. The gallbladder is contracted. PANCREAS: Unremarkable. SPLEEN: Unremarkable. ADRENAL GLANDS: Unremarkable. KIDNEYS AND URETERS: The kidneys are normal in size, shape, and attenuation. No hydronephrosis, hydroureter, or calculi are seen. No perinephric stranding. BLADDER: Unremarkable. GASTROINTESTINAL TRACT: Contrast filling the stomach, duodenum and proximal jejunum consistent with the contrast injected for the ERCP today. There is some contrast mixed with stool also in the colon. There is no extravasation of the contrast. No acute change of the bowel. No bowel obstruction. No bowel wall thickening or edema. The appendix is not seen. ABDOMINAL WALL: No significant hernia is appreciated. LYMPH NODES: Normal. VASCULAR: Unremarkable. PELVIC VISCERA: The uterus is anteverted. There is no adnexal abnormality. OSSEOUS STRUCTURES: Unremarkable. IMPRESSION: Multiple calcified gallstones both in the gallbladder and in the bile ducts. The gallbladder is contracted. There is a biliary stent present in the CBD. Contrast present within the stomach, duodenum and proximal jejunum with no extravasation of contrast. There is no abscess or free air. Mesentery is unremarkable.
--- NOTE | 2018-03-18 22:46 | RADIOLOGY REPORT ---
EXAMINATION: ERCP/INTRAOPERATIVE FLUOROSCOPY CLINICAL INDICATION: Cholelithiasis. COMPARISON: MRI scan of the abdomen dated 03/16/2018. TECHNIQUE/FINDINGS: Fluoroscopic equipment was dedicated to the procedure room for the performance of an intraoperative procedure. Several (15) spot films were acquired and are archived in PACS detailing sequential pictures obtained during an ERCP, confirming choledocholithiasis. Sphincterotomy and balloon runs were performed and 2 pigtail stents were left in place. Please refer to operative notes for procedural detail. FLUOROSCOPY TIME: 7 minutes 21 seconds. IMPRESSION: Administrative dictation for intraprocedural fluoroscopy and image archiving in PACS. Please refer to procedural notes for details.
[2018-03-18 22:52] VITALS: BP 108/62
[2018-03-19 06:00] VITALS: BP 112/70
--- NOTE | 2018-03-19 07:05 | PN- Housestaff ---
Gita KIMBALL,Vamsi 03/19/18 0705: Subjective Follow-up For: Bradycardia choledocholithiasis s/p ERCP with stent placement Tele-Events Since Last Visit: sinus rhyth with HR 40s-60s Subjective: Patient was seen and examined at bedside. She was resting comfortably. She had no acute events overnight. She reports complete resolution of her pain and states that she is hungary and eager to be discharged. She denies any palpitations, chest pain, lightheadedness, dizziness, nausea, vomiting, fever, chills. Review of Systems Constitutional: Denies: chills, fever. EENTM: Reports: no symptoms. Cardiovascular: Denies: chest pain, palpitations. Respiratory: Reports: no symptoms. Gastrointestinal: Denies: abdominal pain, bloating, melena, nausea, bloody stool, vomiting. Genitourinary: Reports: no symptoms. Musculoskeletal: Reports: no symptoms. Objective Last 24 Hrs of Vital Signs/I&O Vital Signs Date Time Temp Pulse Resp B/P B/P Pulse O2 O2 Flow FiO2 Mean Ox Delivery Rate 03/18 2252 99.1 56 16 108/62 95 Room Air 03/18 1431 97.5 50 18 116/57 95 Room Air Intake & Output 03/19 0800 03/19 0000 03/18 1600 Intake Total 6231 489 8505 Output Total Balance 3482 898 3801 Intake, IV 5357 282 6503 Intake, Oral 50 100 Number 0 0 Bowel Movements Patient 165 lb Weight Physical Exam General Appearance: Alert, Oriented X3, Cooperative, No Acute Distress Cardiovascular: Regular Rate, Normal S1, Normal S2 Lungs: Clear to Auscultation, Normal Air Movement Abdomen: Normal Bowel Sounds, Soft, No Tenderness Neurological: Normal Speech, Normal Tone, Sensation Intact Current Medications: Current Medications Sig/Rachana Start time Last Medication Dose Route Stop Time Status Admin Acetaminophen 1,000 MG Q8P PRN 03/16 1915 AC 03/18 PO 0619 Al Hydroxide/Mg 30 ML .STK-MED ONE 03/18 1945 DC Hydroxide PO 03/18 1946 Atropine Sulfate 0.2 MG ONCE PRN 03/19 0230 AC IV Ceftriaxone Sodium 1,000 MG DAILY@19303/16 193 AC 03/18 IV 2123 Dextrose/Sodium 1,000 ML Q13H 03/17 1345 DC 03/18 Chloride IV 191 Fentanyl Citrate 100 MCG .STK-MED ONE 03/18 1344 DC IM 03/18 1345 Hydromorphone HCl 2 MG .STK-MED ONE 03/18 1718 DC IM 03/18 1719 Hydromorphone HCl 2 MG .STK-MED ONE 03/18 1709 DC IM 03/18 1710 Hydromorphone HCl 2 MG .STK-MED ONE 03/18 1656 DC IM 03/18 1657 Lactated Ringer's 1,000 ML Q8H 03/18 1930 AC 03/19 IV 0549 Metoclopramide HCl 10 MG .STK-MED ONE 03/18 1722 DC IM 03/18 1723 Metronidazole 500 MG IQ8 03/17 0000 AC 03/19 N/A 1 UNIT IV 0103 Morphine Sulfate 1 MG Q4-PRN PRN 03/17 1345 AC 03/18 IV 2145 Omeprazole 40 MG DAILY AC 03/17 0945 03/19 PO 0548 Ondansetron HCl 4 MG .STK-MED ONE 03/18 1722 DC IM 03/18 1723 Ondansetron HCl 4 MG Q6P PRN 03/16 0045 AC 03/17 IV 2024 Patient Medication 1 ED ONE ONE 03/18 1500 DC Teaching ED 03/18 1501 Last 24 Hrs of Lab/Jaime Results Last 24 Hrs of Labs/Mics: Laboratory Tests 03/19/18 0700: Troponin I Cancelled 03/19/18 0700: Anion Gap 11, Estimated GFR > 60, BUN/Creatinine Ratio 10.0, Total Bilirubin 1.2 , Direct Bilirubin 0.5 H, AST 133 H, ALT 510 H, Alkaline Phosphatase 153 H, Troponin I < 0.01, Total Protein 5.9 L, Albumin 3.0 L, CBC w Diff NO MAN DIFF REQ, RBC 3.34 L, MCV 88.0, MCH 29.8, MCHC 33.8, RDW 12.8, MPV 8.8, Gran % 71.5, Lymphocytes % 20.1 L, Monocytes % 7.3, Eosinophils % 0.7, Basophils % 0.4, Absolute Granulocytes 3.3, Absolute Lymphocytes 0.9 L, Absolute Monocytes 0.3, Absolute Eosinophils 0, Absolute Basophils 0 03/19/18 0115: Troponin I < 0.01 03/18/18 2100: Troponin I Cancelled Assessment/Plan Assessment: 48-year-old lady with no significant past medical history except anemia came to the hospital with chief complaint of nausea and abdominal pain for 1 day. She reported that couple of hours before coming to the hospital she had an episode of severe abdominal pain around her umbilical area mildly radiating to the back and associated with nausea . Patient was transferred to tele due to bradycardia during the ERCP Bradycardia ACS was ruled out with negative troponins and EKG showing no signs of ischemia -Case was discussed with Dr. Bateman [facility] and did not believe that an echo was necessary prior to discharge. - while monitored on tele, patient had brief, asymptomatic episodes of bradycardia overnight -patient is stable for discharge Choledocholithiasis and cholelithiasis: -Patient tolerated clear liquids for breakfast and a regular diet for lunch -Continue IV hydration with lactated ringers -Continue Zofran as needed for nausea -Continue omeprazole -LFTs improving, H/H has remained stable -Transitioned to PO Cipro 500 BID for 5 days per GI -Patient will follow up with GI, general surgery and [facility] as an outpatient Diet: advanced from NPO to clears, and regular diet all tolerated well DVT prophylaxis:Mechanical only considering her procedure CODE STATUS: Full Code Problem List: 1. Choledocholithiasis Pain Ratin Pain Location: none Pain Goal: Remain pain free Pain Plan: pain pathway Tomorrow's Labs & Rationales: none Dajuan Kumar MD 03/19/18 1333: Attending MD Review Statement Attending Statement Attending MD Statement: examined this patient, discuss w/resident/PA/INSIDE STEWARD/STEWARDESS, agreed w/resident/PA/INSIDE STEWARD/STEWARDESS, reviewed EMR data (avail) Attending Assessment/Plan: Patient is doing well post-ERCP. She tolerated her diet well and has no complaints. She will be discharged today on 5 days of Cipro and will follow up as an outpatient with Dr. Ledesma for repeat ERCP, followed by eventual cholecystectomy. Per cardiology no intervention required for bradycardia, will follow up as an outpatient.
[2018-03-19 07:56] LABS: ABSOLUTE BASOPHIL COUNT 0 /CUMM (0.0-0.2); ABSOLUTE EOSINOPHIL COUNT 0 /CUMM (0.0-0.7); ABSOLUTE GRANULOCYTE CT 3.3 /CUMM (1.4-6.5); ABSOLUTE LYMPH COUNT 0.9 /CUMM (1.2-3.4); ABSOLUTE MONOCYTE COUNT 0.3 /CUMM (0.10-0.60); BASOPHIL % 0.4 % (0.0-2.0); EOSINOPHIL % 0.7 % (0-5); GRANULOCYTE % 71.5 % (42.2-75.2); HEMATOCRIT 29.3 % (37-47); MEAN CORPUSCULAR HGB 29.8 PG (27.0-31.0); MEAN CORPUSCULAR HGB CONC 33.8 G/DL (33.0-37.0); MEAN PLATELET VOLUME 8.8 FL (7.4-10.4); PLATELET COUNT 155 /CUMM (130-400); RBC DISTRIBUTION WIDTH 12.8 % (11.5-14.5); RED BLOOD CELL CT 3.34 /CUMM (4.20-5.40); WHITE BLOOD CELL COUNT 4.7 /CUMM (4.8-10.8)
--- NOTE | 2018-03-19 08:17 | Discharge Summary ---
See Addendum Visit Information Visit Dates Admission Date: 03/15/18 Discharge Date: 03/20/18 Hospital Course Course Attending Physician: Dajuan Kumar MD [facility]: 48-year-old lady with no significant past medical history except anemia came to the hospital with chief complaint of nausea and abdominal pain for 1 day. She reported that couple of hours before coming to the hospital she had an episode of severe abdominal pain around her umbilical area mildly radiating to the back and associated with nausea . ED Course: Vitals: Temperature 97.6, pulse 62, respiratory rate 14, blood pressure 106/60, oxygen saturation 99% on room air Labs: WBC count 3.2, hemoglobin 10.1, hematocrit 28.9, platelet count 157, sodium 140, potassium 3.5, BUN 4, creatinine 0.6, BUNs/creatinine ratio 6.7, total bilirubin 2.9, direct bilirubin 1.6, AST 319, ALT 733, alkaline phosphatase 183, INR 1.20 Choledocholithiasis and cholelithiasis: Patient presented with abdominal pain and nausea, on imaging study patient was found to have cholelithiasis and choledocholithiasis. Patient was afebrile and WBC count was in normal limits. Her CBD was dilated to 1 cm in diameter. GI consult was obtained and recommendations were followed. Patient was kept nothing by mouth considering her nausea and for ERCP. Patient was given IV fluid for hydration. She also received IV Zofran as needed for nausea. Patient also received morphine as needed for pain and omeprazole for stress ulcer prophylaxis. Considering patient's dilated CBD due to choledocholithiasis she was put on IV ceftriaxone and metronidazole for cholangitis prophylaxis although patient was afebrile. ERCP was done and sphincterotomy with stent placement was done. During ERCP, patient was found to have multiple large and small sized stones in CBD. GI will follow the patient as outpatient for further ERCP and lithotripsy to remove the stones. Surgical consult was obtained for cholecystectomy before she is being discharged after the ERCP. patient will follow-up with both GI for a repeat ERCP and this general surgery for eventual cholecystectomy. Transaminitis: Patient had transaminitis possibly due to CBD obstruction. LFTs were followed and it showed decreasing level of liver enzymes. LFTs slowly trended down throughout the admission Sinus bradycardia: Patient had sinus bradycardia. According to the patient this is new for her as her heart rate always in 70s. Cardiology consult was obtained and recommendations were followed. There was no evidence of maria eugenia block or intraventricular block. Possibly patient had vagal upregulation that's causing her sinus bradycardia in the setting of choledocholithiasis and cholelithiasis. Atropine was available at bedside however was not used. Patient was seen by stenotype operator Dr. Bateman, who will follow up with her as an outpatient. Telemetry monitoring showed some sinus bradycardia, however serial troponins were negative and serial EKGs showed no signs of ischemia. DVT prophylaxis: Mechanical only considering her procedure CODE STATUS: Full code Allergies: Coded Allergies: No Known Allergies (03/15/18) Significant Procedures: GI Procedure(s): ERCP with sphincterotomy/papillary balloon dilatation, and insertion of stents Boat Officer: Jh Ledesma M.D. ASA Classification: II Indications: Abdominal pain, elevated LFTs/bilirubin, choledocholithiasis Instrument: duodenoscope Meds Received: MAC Patient's Tolerance: fair (postoperative pain, bradycardi) Complications: none Procedure: The patient signed informed consent, was placed in the prone position and was medicated. Lidocaine pharyngeal spray was also administered. Pulse oximetry, blood pressure and cardiac monitoring were performed continuously throughout the procedure. The Olympus V duodenoscope was inserted into the mouth and advanced to the duodenum. Indomethacin 100 mg was administered per rectum. The stomach was not examined. The duodenum and papilla were normal. The pancreas was not cannulated/injected. The bile duct was accessed with guidewire , cannulated and opacified. The cholangiogram demonstrated a normal CBD (5 mm), dilated CHD (10 mm, and 6 filling defects in the CHD/proximal CBD, with the most distal measuring 10 mm. The intrahepatic ducts were normal. A large, bloodless sphincterotomy was performed. The most distal stone was not extractable with a balloon. As such the ampulla was dilated to 11 mm for 30 seconds, using a CRE balloon. The extraction balloon could be extracted through the ampulla fully inflated. It was reintroduced, but the most distal stone could not be advanced beyond the distal CBD (apparently decreased compliance of CBD in relation to size/shape of stone). 2 7 Slovenian/7 cm double pigtail (Critique^It) stents were inserted. Postprocedure, the patient had bradycardia corrected with atropine, as well as abdominal pain. She was moved from the GI recovery area to the PACU. Impression: Choledocholithiasis with multiple medium/large stones Performance of sphincterotomy/papillary balloon dilatation, and insertion of stents Recommendations: Transferred to telemetry or ICU, given bradycardia and pain. CT scan of the abdomen tonight IV analgesics and antiemetics as necessary Nothing by mouth until pain-free, and then may begin clear liquids IV fluids (Ringers lactate) Follow-up CBC and LFTs in the morning Avoid anticoagulation for 72 hours possible Eventual repeat ERCP with possible dilatation and lithotripsy Pertinent Lab Results: Ultrasound abdominal 03/15/2018: IMPRESSION: 1. Cholelithiasis. No gallbladder wall thickening or pericholecystic fluid. There is positive ultrasound Arriaza's sign. 2. Dilatation of the CBD to 9 mm. Possible stone in the distal CBD that of the pancreas. Abdominal MRI on 03/16/2018: IMPRESSION: Cholelithiasis and choledocholithiasis; the dilated proximal common duct measures up to 1 cm diameter. No gallbladder wall edema is identified. No convincing findings for acute cholecystitis. ERCP x-ray on 03/18/2018: IMPRESSION: Administrative dictation for intraprocedural fluoroscopy and image archiving in PACS. Please refer to procedural notes for details. Abdominal and pelvic CT scan on 03/18/2018: IMPRESSION: Multiple calcified gallstones both in the gallbladder and in the bile ducts. The gallbladder is contracted. There is a biliary stent present in the CBD. Contrast present within the stomach, duodenum and proximal jejunum with no extravasation of contrast. There is no abscess or free air. Mesentery is unremarkable. Disposition Summary Disposition Principal Diagnosis: Cholelithiasis and choledocholithiasis status post ERCP and stent placement Sinus bradycardia Additional Diagnosis: NONE Discharge Disposition: home or self care Discharge Instructions General Discharge Information Code Status: Full Code Patient's Diet: Regular diet Patient's Activity: Self-limited Follow-Up Instructions/Appts: Follow-up with primary care physician in one week Follow up with gastroenterology in one week for further recommendation to do ERCP and lithotripsy to remove the CBD stones. Follow up with G.surgery for outpatient cholecystectomy in future. Follow up with cardiology in one week. Medications at Discharge Discharge Medications: Continue taking these medications: Ferrous Sulfate (Ferrous Sulfate) 324 MG (65 MG IRON) TABLET.DR 1 Tablet ORAL Every 3 days Comments: NOT GIVEN IN HOSPITAL Cholecalciferol (Vitamin D3) (Vitamin D3) (Unknown Strength) CAPSULE Unknown Dose ORAL Every 3 days Comments: NOT GIVEN IN HOSPITAL Start taking the following new medications: Omeprazole (Omeprazole) 20 MG CAPSULE.DR 40 Milligram ORAL DAILY BEFORE BREAKFAST Qty = 30 No Refills Instructions: . Comments: NOT GIVEN IN HOSPITAL Ciprofloxacin HCl (Ciprofloxacin HCl) 500 MG TABLET 1 Tablet ORAL TWICE DAILY Qty = 10 No Refills Instructions: . Comments: NOT GIVEN IN HOSPITAL FLAGYL GIVEN Copies To: Ivonne Smith DO; Bhavana KIMBALL,Roel; Melissa KIMBALL,Maycol NMeet; Callie KIMBALL, Jh Machado
[2018-03-19] MEDS ORDERED: CIPROFLOXACIN500 M2 PO ×2 (11:15→14:57)
[2018-03-19] MEDS ORDERED: OMEPRAZOLE20 M2 PO ×2 (11:16→14:57)
--- NOTE | 2018-03-19 13:23 | Patient Discharge Instructions ---
Discharge Instructions General Discharge Information You were seen/treated for: Cholangitis Bradycardia Special Instructions: Follow-up with your primary care physician within 1 week of discharge. Follow-up with Dr. Ledesma. Please call his office tomorrow and set up an appointment for Sunday03/25/18. You will need a cholecystectomy in the future, we have provided you with Dr. Torres's contact information. Please discuss the surgery with Dr. Ledesma at your appointment with him. Follow-up with Dr. Bateman for cardiology within 1-2 weeks. We have provided you with a referral. Call your doctor or return to the ER if you experience fever, chills, nausea, vomiting, yellowing of your skin or eyes, or bloody or dark bowel movements. Acute Coronary Syndrome Inclusion Criteria At DC or during hospital stay patient has or had the following: ACS DIAGNOSIS No Discharge Core Measures Meds if any: Prescribed or Continued at Discharge Meds if any: NOT Prescribed or Continued at Discharge Congestive Heart Failure Inclusion Criteria At DC or during hospital stay patient has or had the following: CHF DIAGNOSIS No Discharge Core Measures Meds if any: Prescribed or Continued at Discharge Meds if any: NOT Prescribed or Continued at Discharge Cerebrovascular accident Inclusion Criteria At DC or during hospital stay patient has or had the following: CVA/TIA Diagnosis No Discharge Core Measures Meds if any: Prescribed or Continued at Discharge Meds if any: NOT Prescribed or Continued at Discharge Venous thromboembolism Inclusion Criteria VTE Diagnosis No VTE Type NONE VTE Confirmed by (Test) NONE Discharge Core Measures - Per Current guidelines, there needs to be overlap - treatment for the first 5 days of Warfarin therapy. - If discharged on Warfarin prior to 5 days of - overlap therapy, the patient will need to be - assessed for post discharge needs including - *Post discharge parental anticoagulation - *Warfarin and/or parental anticoagulation education - *Follow up date to check INR post discharge At least 5 days overlap therapy as Inpatient No Meds if any: Prescribed or Continued at Discharge Note: Overlap Therapy is Warfarin and Anticoagulant Meds if any: NOT Prescribed or Continued at Discharge
[2018-05-02] MEDS ORDERED: PERCOCET 5-3251 EACH PO (10:53)
== END 2018-03-19 15:05 | DRG 446 ==
LOC: ERH 20:21 → 2NB 23:36 → ERHI 23:36 → ENRESERV 03-16 01:03 → 2NB 03-16 01:51 → ENTRNSPT 03-18 17:47 → EDTRNSPTSTS 03-18 18:02 → EDTRNSPT 03-18 18:02 → ENRESERV 03-18 18:06 → 1NO 03-18 18:21 → CMPTRNSPT 03-18 18:24 → 1NO 03-18 19:07 → ENPENDDIS 03-19 14:00 → ENTRNSPT 03-19 15:00 → EDTRNSPT 03-19 15:05 → 1NO 03-19 15:05 → EDTRNSPTSTS 03-19 15:05 → CMPTRNSPT 03-19 15:11
PROVIDERS: Internal Medicine; Pediatrics; Radiology Vascular & Interventional Radiology; Student in an Organized Health Care Education/Training Program
PROC: 0F798DZ Dilation of Common Bile Duct with Intraluminal Device, Via Natural or Artificial Opening Endoscopic (ICD-10-PCS; principal; 2018-03-18)
DX: K80.70 Calculus of gallbladder and bile duct without cholecystitis without obstruction (principal); D64.9 Anemia, unspecified; R00.1 Bradycardia, unspecified; R94.5 Abnormal results of liver function studies; R79.89 Other specified abnormal findings of blood chemistry
CPT/HCPCS: 1NP; 2NBP; 74181; ERO; 36415; 36592; 74176; 81025; 82436; 87040; 93005; 93010; 96374; J0461; J0696; J1610; J2270; J2405; J2765; J3490; J7042; J7120

== ENCOUNTER → 2018-05-02 | Day surgery (SDC) | payer OTHER ==
[~2018-05-02] VITALS: Ht 160 cm; Wt 72.6 kg
[~2018-05-02] MED LIST: CIPROFLOXACIN500 M2 PO; FERROUS SULFAT324 MG PO; OMEPRAZOLE20 M2 PO; PERCOCET 5-3251 EACH PO; VITAMIN D31000 UNI1 PO
--- NOTE | 2018-05-02 11:07 | Operative Report ---
Operative/Inv Procedure Report Surgery Date: 05/02/18 Name of Procedure: Laparoscopic cholecystectomy Pre-Operative Diagnosis: Choledocholithiasis Post-Operative Diagnosis: Same, and chronic cholecystitis Estimated Blood Loss: scant Surgeon/Hydroelectric Plant Mechanical Engineer: Melissa KIMBALL,Maycol WILSON Anesthesia: general endotracheal tube Operative/Procedure Note Note: Patient was positioned supine. After successful induction of general anesthesia, the patient's abdomen was clipped, prepped and draped in the usual sterile fashion. Local anesthetic was injected at the top of the umbilicus and then a curved horizontal incision little over a centimeter was made there with a 15 blade and then deepened to the midline fascia which was incised vertically a little over a centimeter. Both sides were secured with 0 Vicryl stay sutures and then the thin peritoneal layer was entered, 10 mm Corral trocar inserted obliquely to the right, and the gas was turned on to 15 mm. After insufflation and repositioning to reverse Trendelenburg, 3 more dissecting 5 mm trochars were placed in the right subcostal area, first lateral, then mid-subcostal, then subxiphoid. The gallbladder fundus was grasped from the lateral port and retracted up over the edge of the liver and then we dissected out the area of the triangle of Calot while retracting the infundibulum caudally / laterally. Despite the suppleness of the fundus as you proceed medially the area of the neck of the gallbladder was very thickened and was difficult to identify the curve of the infundibulum as it transitions to the cystic duct I had to check her imaging intraoperatively she has common bile duct stents in her common duct was full of stones so probably she really doesn't have a distinct cystic duct gallbladder just tapered right into the common and the cystic duct was stretched out so the concern was to stay way from the common duct. Based on where the cystic artery and branches were and the branch of the cystic artery to the cystic duct I estimated where the neck of the gallbladder was and started to develop a window around it I also switched the subxiphoid port to a larger one selected using 1 cm clip, it was very adherent but we had to dissect the cystic artery anterior branch laterally to help develop a window and when we got through with the [place] I clipped the neck of the gallbladder twice could not fit a clip on the gallbladder side so just cut it, there was some pale mucousy bile no stones at this point we had more room to retract and address the cystic artery and branches which we clipped as well. Then the gallbladder was from the liver bed using cautery then lowered into an Endobag and removed through the umbilical incision. The instruments and then the trochars were removed letting the gas escape. The fascial incision was closed with a figure 8 Vicryl, as well as the fascia on the enlarged subxiphoid port, then all 4 skin incisions were closed with interrupted subcuticular 4-0 Monocryl, followed by Mastisol Steri-Strips and Bandaids. Estimated blood loss was minimal, lap and sponge counts were correct, wound expectancy was clean-contaminated, IV fluids crystalloid, complications none, patient tolerated the procedure well and was returned to the recovery room in satisfactory condition.
== END ==
LOC: STS 02:35
DX: K80.10 Calculus of gallbladder with chronic cholecystitis without obstruction (principal)
CPT/HCPCS: 81025; 88304; J0131; J0690; J2250; J3490